=== PATIENT | female | born 1960 | race Caucasian/White ===

== ENCOUNTER 2018-04-10 09:00 | Outpatient (RCR) | payer OTHER, SELFPAY ==
--- NOTE | 2018-02-26 16:12 | PT.OTN ---
Current Diagnoses Other idiopathic scoliosis, lumbar region (02/27/18) Spondylolisthesis, lumbar region (02/27/18) Spinal stenosis, lumbar region with neurogenic claudication (02/27/18) Abnormal posture (02/27/18) Weakness (02/27/18) Transition note: On February 26, 2018 our therapy services consisting of Speech, Occupational, and Physical Therapy transitioned from the [employer] electronic documentation system to a new [employer] electronic documentation system.?? All documentation prior to February 26 can be found under [employer] saved data. From February 26 forward all medical record documentation will be in [employer] 6[employer]1.
--- NOTE | 2018-02-27 10:39 | PT.OTN ---
Transition note: On February 26, 2018 our therapy services consisting of Speech, Occupational, and Physical Therapy transitioned from the [employer] electronic documentation system to a new [employer] electronic documentation system.?? All documentation prior to February 26 can be found under [employer] saved data. From February 26 forward all medical record documentation will be in [employer]. Current Diagnoses Other idiopathic scoliosis, lumbar region (02/27/18) Spondylolisthesis, lumbar region (02/27/18) Spinal stenosis, lumbar region with neurogenic claudication (02/27/18) Abnormal posture (02/27/18) Weakness (02/27/18)
--- NOTE | 2018-02-27 10:56 | PT.OTN ---
Current Diagnoses Other idiopathic scoliosis, lumbar region (02/27/18) Spondylolisthesis, lumbar region (02/27/18) Spinal stenosis, lumbar region with neurogenic claudication (02/27/18) Abnormal posture (02/27/18) Weakness (02/27/18) Physical Therapy Treatment Note PT-OP-A Visit Information Start: 02/27/18 08:09 Freq: Status: Active Protocol: Activity Type Activity Date Activity User E-Sign Co-Sign Detail Recorded Client Recorded Date Recorded By Document 02/27/18 10:41 [facility] [email or web address] 02/27/18 10:55 [facility] 02/27/18 10:41 Out-Patient Physical Therapy Visit Information [Visit Information] -Visit Type Treatment Note -Visit Note POC ends -Visit Start Time 09:45 -Visit Stop Time 10:40 -Total Visit Minutes 55 PT-OP-C Subjective Start: 02/27/18 08:09 Freq: Status: Active Protocol: Activity Type Activity Date Activity User E-Sign Co-Sign Detail Recorded Client Recorded Date Recorded By Document 02/27/18 10:41 [facility] [email or web address] 02/27/18 10:55 [facility] 02/27/18 10:41 OP-PT Subjective [Patient Comments] -Patient Comments Pt reports she has been doing good. She has been getting some intermittent nerve pain. She has vacuumed and is okay. Pt reports she walked for 1 hour on treadmill with 4% gain. Reports she has been doing a lot of gardening too. PT-OP-Q Treatments Start: 02/27/18 08:09 Freq: Status: Active Protocol: Activity Type Activity Date Activity User E-Sign Co-Sign Detail Recorded Client Recorded Date Recorded By Document 02/27/18 10:41 [facility] [email or web address] 02/27/18 10:55 [facility] 02/27/18 10:41 Therapeutic Exercises [Supine Exercises] 2 -Supine Exercise Name bridge single leg -Side bilateral -Reps/Minutes 15 (B) 1 -Supine Exercise Name Bic[place] -Side bilateral -Reps/Minutes 15 [Prone Exercises] 1 -Prone Exercise Name Hip ER -Side bilateral -Resistance L1 -Reps/Minutes 10 [Sidelying Exercises] 1 -Sidelying Exercise Name s/l abd along wall -Side right -Reps/Minutes 10 [Standing Exercises] 3 -Standing Exercise Name wall roll up w/ 90/90 ER -Reps/Minutes 12 2 -Standing Exercise Name lunges -Side bilateral -Reps/Minutes 5 1 -Standing Exercise Name squat -Side bilateral -Reps/Minutes 20 -Comments manual cueing for trunk Manual Therapy Treatment [Soft Tissue Mobilization] 1 -Body Location Abdominal scars FM w/pelvic tilts & LTR -Mobilization Type Sustained Pressure -Intensity/Depth Moderate -Body Position Supine -Comments 28 min Self-Care/Home Management Treatment [Education] -Caregiver Education Hands and knee position while pulling weeds PT-OP-R Modalities Start: 02/27/18 08:09 Freq: Status: Active Protocol: Activity Type Activity Date Activity User E-Sign Co-Sign Detail Recorded Client Recorded Date Recorded By Document 02/27/18 10:55 [facility] [email or web address] 02/27/18 10:56 [facility] 02/27/18 10:55 Hot Pack/Cold Pack [Treatment] Cold Pack -Location LB -Patient Position Hooklying -Treatment Duration (minutes) 10 PT-OP-T Assessment and Plan Start: 02/27/18 08:09 Freq: Status: Active Protocol: Activity Type Activity Date Activity User E-Sign Co-Sign Detail Recorded Client Recorded Date Recorded By Document 02/27/18 10:41 [facility] [email or web address] 02/27/18 10:55 [facility] 02/27/18 10:41 Physical Therapy Assessment [Assessment Summary] -Assessment Pt reports feeling pain in L SI region during manual abdominal STM. Pt did well with HEP exercises with min cueing required for pelvic control. Squatting did require significant manual cueing. Cont cueing for neutral posture. Physical Therapy Plan [Next Visit Focus/Plan] -Next Visit Plan Advance scar mobility
--- NOTE | 2018-03-13 11:24 | PT.OTN ---
Current Diagnoses Other idiopathic scoliosis, lumbar region (03/13/18) Spondylolisthesis, lumbar region (03/13/18) Spinal stenosis, lumbar region with neurogenic claudication (03/13/18) Abnormal posture (03/13/18) Weakness (03/13/18) Physical Therapy Treatment Note PT-OP-A Visit Information Start: 02/27/18 08:09 Freq: Status: Active Protocol: Document 03/13/18 10:35 [facility] (Rec: 03/13/18 11:24 [facility] [id number]) Out-Patient Physical Therapy Visit Information Visit Information Visit Type Treatment Note Visit Start Time 10:30 Visit Stop Time 11:30 Total Visit Minutes 60 Visit Number PT-OP-C Subjective Start: 02/27/18 08:09 Freq: Status: Active Protocol: Document 03/13/18 10:35 [facility] (Rec: 03/13/18 11:24 [facility] [id number]) OP-PT Subjective Patient Comments Patient Comments Reports she walked the loop 2x yesterday but had 2-3/10 pain right after which she iced to help improve that pain. Was able to play with her grandkids without significant pain. PT-OP-Q Treatments Start: 02/27/18 08:09 Freq: Status: Active Protocol: Document 03/13/18 10:35 [facility] (Rec: 03/13/18 11:24 [facility] [id number]) Manual Therapy Treatment Soft Tissue Mobilization 2 Body Location piriformis L Mobilization Type Sustained Pressure Intensity/Depth Moderate Body Position Prone 1 Body Location Abdominal scars FM w/pelvic tilts & LTR Mobilization Type Sustained Pressure Intensity/Depth Moderate Body Position Supine Comments 30 min Joint Mobilizations 3 Joint hip Direction hip on axis ER R 2 Joint innominate Direction ER, ext, caudal Body Position Prone Comments FM 1 Joint sacrum Direction caudal & PA Body Position Prone Comments FM PT-OP-R Modalities Start: 02/27/18 08:09 Freq: Status: Active Protocol: Document 03/13/18 10:35 [facility] (Rec: 03/13/18 11:24 [facility] [id number]) Hot Pack/Cold Pack Treatment Cold Pack Location LB Patient Position Hooklying Treatment Duration (minutes) 10 PT-OP-T Assessment and Plan Start: 02/27/18 08:09 Freq: Status: Active Protocol: Document 03/13/18 10:35 [facility] (Rec: 03/13/18 11:24 [facility] [id number]) Physical Therapy Assessment Assessment Summary Assessment Pt cont to have restrictions in scar tissue and is improving with overall functional ability. Cont to have pain with activity which will require further re- edu on core stability. Physical Therapy Plan Frequency and Duration Frequency of Treatment 1-2x/week Plan of Care End Date 04/23/18 Next Visit Focus/Plan Next Visit Plan Work on nutation.
--- NOTE | 2018-03-20 13:06 | PT.OTN ---
Current Diagnoses Other idiopathic scoliosis, lumbar region (03/20/18) Spondylolisthesis, lumbar region (03/20/18) Spinal stenosis, lumbar region with neurogenic claudication (03/20/18) Abnormal posture (03/20/18) Weakness (03/20/18) Physical Therapy Treatment Note PT-OP-A Visit Information Start: 02/27/18 08:09 Freq: Status: Active Protocol: Document 03/20/18 10:31 [facility] (Rec: 03/20/18 13:02 [facility] [id number]) Out-Patient Physical Therapy Visit Information Visit Information Visit Type Treatment Note Visit Start Time 10:30 Visit Stop Time 11:15 Total Visit Minutes 45 Visit Number 60 PT-OP-C Subjective Start: 02/27/18 08:09 Freq: Status: Active Protocol: Document 03/20/18 10:31 [facility] (Rec: 03/20/18 13:02 [facility] [id number]) OP-PT Subjective Patient Comments Patient Comments Reports bruising to scar region after last STM. Notes she has been doing housework & yard work & 1 lap walks with some pain. PT-OP-Q Treatments Start: 02/27/18 08:09 Freq: Status: Active Protocol: Document 03/20/18 10:31 [facility] (Rec: 03/20/18 13:02 [facility] [id number]) Therapeutic Exercises Prone Exercises 2 Prone Exercise Name plank Reps/Minutes 2x20 sec Standing Exercises 1 Standing Exercise Name squat Side bilateral Resistance 5lb Reps/Minutes 15 Comments manual cueing for trunk Manual Therapy Treatment Soft Tissue Mobilization 3 Body Location QL Mobilization Type Rolling Intensity/Depth Moderate Joint Mobilizations 3 Joint hip Direction hip on axis ER R 2 Joint innominate Direction ER, caudal Body Position Prone Comments FM 1 Joint sacrum Direction caudal & PA Body Position Prone Comments FM Manual Techniques 1 Type Post depression COI Body Position Sidelying PT-OP-R Modalities Start: 02/27/18 08:09 Freq: Status: Active Protocol: Document 03/13/18 10:35 [facility] (Rec: 03/13/18 11:24 [facility] [id number]) Hot Pack/Cold Pack Treatment Cold Pack Location LB Patient Position Hooklying Treatment Duration (minutes) 10 PT-OP-T Assessment and Plan Start: 02/27/18 08:09 Freq: Status: Active Protocol: Document 03/20/18 10:31 [facility] (Rec: 03/20/18 11:23 [facility] [id number]) Physical Therapy Assessment Assessment Summary Assessment Pt improved with manual STM & mobilization to have improved alignment. Pt had some bruising along scar and was instructed to not mobilize until that improves. Improved mobility of scar noted especially on lat borders. Physical Therapy Plan Frequency and Duration Frequency of Treatment 1-2x/week Plan of Care End Date 04/23/18 Next Visit Focus/Plan Next Visit Plan Work on nutation. Please Sign and Return: I have reviewed this Plan of Care and certify that the skilled therapy services above are required to meet the patient???s needs. Physician Signature Date Printed Name and Credentials Clinical Instructor Signature Printed Name and Credentials
--- NOTE | 2018-03-27 13:36 | PT.OTN ---
Current Diagnoses Other idiopathic scoliosis, lumbar region (03/27/18) Spondylolisthesis, lumbar region (03/27/18) Spinal stenosis, lumbar region with neurogenic claudication (03/27/18) Abnormal posture (03/27/18) Weakness (03/27/18) Physical Therapy Treatment Note PT-OP-A Visit Information Start: 02/27/18 08:09 Freq: Status: Active Protocol: Document 03/27/18 13:31 [facility] (Rec: 03/27/18 13:36 [facility] [email or web address]) Out-Patient Physical Therapy Visit Information Visit Information Visit Type Treatment Note Visit Start Time 10:40 Visit Stop Time 11:25 Total Visit Minutes 45 Visit Number PT-OP-C Subjective Start: 02/27/18 08:09 Freq: Status: Active Protocol: Document 03/27/18 13:31 [facility] (Rec: 03/27/18 13:36 [facility] [email or web address]) OP-PT Subjective Patient Comments Patient Comments Pt reports scar is no longer bruised or tender. Reports 1/ 10 pain after pilates & walking 1 loop at [place]. She is going to start to gradually increase loop. Most pain has been is 2-3/10. PT-OP-M Strength Start: 02/27/18 08:09 Freq: Status: Active Protocol: Document 03/27/18 13:31 [facility] (Rec: 03/27/18 13:36 [facility] [email or web address]) Hip Strength Hip Manual Muscle Testing Right Flexion (L2) 4+ Good+ Extension (S1) 5 Normal Abduction 5 Normal External Rotation 5 Normal Internal Rotation 5 Normal Left Flexion (L2) 5 Normal Extension (S1) 5 Normal Abduction 5 Normal External Rotation 5 Normal Internal Rotation 5 Normal PT-OP-Q Treatments Start: 02/27/18 08:09 Freq: Status: Active Protocol: Document 03/27/18 13:31 [facility] (Rec: 03/27/18 13:36 [facility] [email or web address]) Therapeutic Exercises Standing Exercises 2 Standing Exercise Name lunges Side bilateral Reps/Minutes 5 Other Exercises 1 Other Exercise Name rolling out on foam roll LEs Manual Therapy Treatment Soft Tissue Mobilization 3 Body Location QL Mobilization Type Rolling Intensity/Depth Moderate 2 Body Location piriformis R>L Mobilization Type Sustained Pressure Intensity/Depth Moderate Body Position Prone Comments active release with hip ER/IR Joint Mobilizations 3 Joint hip Direction hip on axis ER B Comments w/neuro re edu 2 Joint innominate Direction ER, caudal, ext Body Position Prone Comments FM 1 Joint sacrum Direction caudal & PA Body Position Prone Comments FM Manual Techniques 1 Type Post depression COI Body Position Sidelying PT-OP-R Modalities Start: 02/27/18 08:09 Freq: Status: Active Protocol: Document 03/13/18 10:35 [facility] (Rec: 03/13/18 11:24 [facility] [id number]) Hot Pack/Cold Pack Treatment Cold Pack Location LB Patient Position Hooklying Treatment Duration (minutes) 10 PT-OP-T Assessment and Plan Start: 02/27/18 08:09 Freq: Status: Active Protocol: Document 03/27/18 13:31 [facility] (Rec: 03/27/18 13:36 [facility] [email or web address]) Physical Therapy Assessment Assessment Summary Assessment Pt is improving with her pelvis mobility with mobilization. No knee pain with pelvic mobs. Physical Therapy Plan Frequency and Duration Frequency of Treatment Every Other Week Plan of Care End Date 04/23/18 Next Visit Focus/Plan Next Note Type Treatment Note Next Visit Plan Work on nutation & possible d/ c if pt ready Please Sign and Return: I have reviewed this Plan of Care and certify that the skilled therapy services above are required to meet the patient???s needs. Physician Signature Date Printed Name and Credentials Clinical Instructor Signature Printed Name and Credentials
--- NOTE | 2018-04-01 15:13 | PT.OTN ---
Current Diagnoses Other idiopathic scoliosis, lumbar region (03/27/18) Spondylolisthesis, lumbar region (03/27/18) Spinal stenosis, lumbar region with neurogenic claudication (03/27/18) Abnormal posture (03/27/18) Weakness (03/27/18) Physical Therapy Treatment Note PT-OP-A Visit Information Start: 02/27/18 08:09 Freq: Status: Active Protocol: Document 04/01/18 14:58 [facility] (Rec: 04/01/18 15:13 [facility] [email or web address]) Out-Patient Physical Therapy Visit Information Visit Information Visit Type Treatment Note Visit Start Time 10:15 Visit Stop Time 11:00 Total Visit Minutes 45 Visit Number 13/60 Number of FILLER OPERATOR Visits 1 PT-OP-C Subjective Start: 02/27/18 08:09 Freq: Status: Active Protocol: Document 04/01/18 14:58 [facility] (Rec: 04/01/18 15:13 [facility] [email or web address]) OP-PT Subjective Patient Comments Patient Comments No complaints of pain today. States usually only has pain after pilates or walking too far. Happy to be in pool. PT-OP-M Strength Start: 02/27/18 08:09 Freq: Status: Active Protocol: Document 03/27/18 13:31 [facility] (Rec: 03/27/18 13:36 [facility] [email or web address]) Hip Strength Hip Manual Muscle Testing Right Flexion (L2) 4+ Good+ Extension (S1) 5 Normal Abduction 5 Normal External Rotation 5 Normal Internal Rotation 5 Normal Left Flexion (L2) 5 Normal Extension (S1) 5 Normal Abduction 5 Normal External Rotation 5 Normal Internal Rotation 5 Normal PT-OP-Q Treatments Start: 02/27/18 08:09 Freq: Status: Active Protocol: Document 03/27/18 13:31 [facility] (Rec: 03/27/18 13:36 [facility] [id number]) Therapeutic Exercises Standing Exercises 2 Standing Exercise Name lunges Side bilateral Reps/Minutes 5 Other Exercises 1 Other Exercise Name rolling out on foam roll LEs Manual Therapy Treatment Soft Tissue Mobilization 3 Body Location QL Mobilization Type Rolling Intensity/Depth Moderate 2 Body Location piriformis R>L Mobilization Type Sustained Pressure Intensity/Depth Moderate Body Position Prone Comments active release with hip ER/IR Joint Mobilizations 3 Joint hip Direction hip on axis ER B Comments w/neuro re edu 2 Joint innominate Direction ER, caudal, ext Body Position Prone Comments FM 1 Joint sacrum Direction caudal & PA Body Position Prone Comments FM Manual Techniques 1 Type Post depression COI Body Position Sidelying PT-OP-R Modalities Start: 02/27/18 08:09 Freq: Status: Active Protocol: Document 03/13/18 10:35 [facility] (Rec: 03/13/18 11:24 [facility] [id number]) Hot Pack/Cold Pack Treatment Cold Pack Location LB Patient Position Hooklying Treatment Duration (minutes) 10 PT-OP-S Aquatic Treatment Start: 04/01/18 14:58 Freq: Status: Active Protocol: Document 04/01/18 14:58 [facility] (Rec: 04/01/18 15:13 [facility] [email or web address]) Aquatics Treatment Pool Entry/Exit Pool Entry/Exit Method Stairs Assistance Independent Water Walking [place] December Water Level Chest Level Walking Equipment Resistance Fins Backwards Water Level Chest Level Walking Equipment Resistance Fins Sideways Water Level Chest Level Walking Equipment Resistance Fins Forwards Water Level Chest Level Walking Equipment Resistance Fins Level of Assistance Standby Assistance Lower Extremity Exercises 4 Details Squats Body Position Standing Water Level Waist Level Equipment Resistance Fins 3 Details Hip circles Body Position Standing Water Level Chest Level Equipment Resistance Fins 2 Details Hip Abduction Body Position Standing Water Level Chest Level Equipment Resistance Fins 1 Details Hip flexion/extension Body Position Standing Water Level Chest Level Equipment Resistance Fins Lower Extremity Stretches 2 Details Hamstring Body Position Standing Water Level Chest Level Equipment Small Noodle Comments 2 small noodles 1 Details Single/Double knee to chest Water Level Terrell Spinal Exercises 1 Details Deep water stabilization Water Level Terrell Equipment [place] Terrell Activities Terrell Activities Bicycle [place] Equipment Belt PT-OP-T Assessment and Plan Start: 02/27/18 08:09 Freq: Status: Active Protocol: Document 04/01/18 14:58 [facility] (Rec: 04/01/18 15:13 [facility] [email or web address]) Physical Therapy Assessment Assessment Summary Assessment No complaints of pain with aquatics, pt. enjoyed aquatics and was excited to be in pool . Physical Therapy Plan Frequency and Duration Frequency of Treatment Every Other Week Plan of Care End Date 04/23/18 Next Visit Focus/Plan Next Note Type Treatment Note Next Visit Plan To be determined by P.T. Please Sign and Return: I have reviewed this Plan of Care and certify that the skilled therapy services above are required to meet the patient?s needs. Physician Signature Date Printed Name and Credentials Clinical Instructor Signature Printed Name and Credentials
--- NOTE | 2018-04-10 09:47 | PT.OTN ---
Current Diagnoses Other idiopathic scoliosis, lumbar region (04/10/18) Spondylolisthesis, lumbar region (04/10/18) Spinal stenosis, lumbar region with neurogenic claudication (04/10/18) Abnormal posture (04/10/18) Weakness (04/10/18) Physical Therapy Treatment Note PT-OP-A Visit Information Start: 02/27/18 08:09 Freq: Status: Active Protocol: Document 04/10/18 09:42 [facility] (Rec: 04/10/18 09:47 [facility] [id number]) Out-Patient Physical Therapy Visit Information Visit Information Visit Type Discharge Summary Visit Start Time 09:00 Visit Stop Time 09:38 Total Visit Minutes 38 PT-OP-C Subjective Start: 02/27/18 08:09 Freq: Status: Active Protocol: Document 04/10/18 09:42 [facility] (Rec: 04/10/18 09:47 [facility] [id number]) OP-PT Subjective Patient Comments Patient Comments Feels ready for d/c. Patient Questionnaires Oswestry Low Back Index Oswestry Score 3 Oswestry Impairment 1 to 19% Impaired (Score 1-19) PT-OP-M Strength Start: 02/27/18 08:09 Freq: Status: Active Protocol: Document 04/10/18 09:42 [facility] (Rec: 04/10/18 09:47 [facility] [id number]) Hip Strength Hip Manual Muscle Testing Right Flexion (L2) 4+ Good+ Extension (S1) 5 Normal Abduction 5 Normal External Rotation 5 Normal Internal Rotation 5 Normal Left Flexion (L2) 5 Normal Extension (S1) 5 Normal Abduction 5 Normal External Rotation 5 Normal Internal Rotation 5 Normal PT-OP-Q Treatments Start: 02/27/18 08:09 Freq: Status: Active Protocol: Document 04/10/18 09:42 [facility] (Rec: 04/10/18 09:47 [facility] [id number]) Therapeutic Exercises Prone Exercises 1 Prone Exercise Name ER Equipment Used Lvl 1 (B) Comments 10 Therapeutic Activity Therapeutic Activity 1 Comments Review HEP & MMT & goals & prep for d/c Manual Therapy Treatment Soft Tissue Mobilization 3 Body Location QL Mobilization Type Rolling Intensity/Depth Moderate Joint Mobilizations 3 Joint hip Direction hip on axis ER B Comments w/neuro re edu 2 Joint innominate Direction ER, caudal, ext Body Position Prone Comments FM 1 Joint sacrum Direction caudal & PA Body Position Prone Comments FM PT-OP-R Modalities Start: 02/27/18 08:09 Freq: Status: Active Protocol: Document 04/10/18 09:42 [facility] (Rec: 04/10/18 09:47 [facility] [id number]) Hot Pack/Cold Pack Treatment Cold Pack Location LB Patient Position Hooklying Treatment Duration (minutes) 10 PT-OP-S Aquatic Treatment Start: 04/01/18 14:58 Freq: Status: Active Protocol: Document 04/01/18 14:58 [facility] (Rec: 04/01/18 15:13 [facility]MS [id number]) Aquatics Treatment Pool Entry/Exit Pool Entry/Exit Method Stairs Assistance Independent Water Walking [place] December Water Level Chest Level Walking Equipment Resistance Fins Backwards Water Level Chest Level Walking Equipment Resistance Fins Sideways Water Level Chest Level Walking Equipment Resistance Fins Forwards Water Level Chest Level Walking Equipment Resistance Fins Level of Assistance Standby Assistance Lower Extremity Exercises 4 Details Squats Body Position Standing Water Level Waist Level Equipment Resistance Fins 3 Details Hip circles Body Position Standing Water Level Chest Level Equipment Resistance Fins 2 Details Hip Abduction Body Position Standing Water Level Chest Level Equipment Resistance Fins 1 Details Hip flexion/extension Body Position Standing Water Level Chest Level Equipment Resistance Fins Lower Extremity Stretches 2 Details Hamstring Body Position Standing Water Level Chest Level Equipment Small Noodle Comments 2 small noodles 1 Details Single/Double knee to chest Water Level [place] Spinal Exercises 1 Details Deep water stabilization Water Level [place] Equipment [place] Activities [place] Activities Bicycle [place] Equipment Belt PT-OP-T Assessment and Plan Start: 02/27/18 08:09 Freq: Status: Active Protocol: Document 04/10/18 09:42 [facility] (Rec: 04/10/18 09:47 [facility] [id number]) Physical Therapy Assessment Progress Towards Goals Progress Towards Goals Progressing Toward Goals Goals Met Progress Comments Pt is close to meeting YENI goal with cont progress with cont HEP. 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 Pt has good posture presentation with good core activation as proven by 5/5 VCT & 3-4/5 in all planes LPM. Pt has 1/10 pain at most and demonstrates good gait mechanics. Physical Therapy Plan Discharge Physical Therapy Discharge Reasons Goals Met Please Sign and Return: I have reviewed this Plan of Care and certify that the skilled therapy services above are required to meet the patient?s needs. Physician Signature Date Printed Name and Credentials Clinical Instructor Signature Printed Name and Credentials
--- NOTE | 2018-04-10 09:47 | PT.OPDS ---
Current Diagnoses Other idiopathic scoliosis, lumbar region (04/10/18) Spondylolisthesis, lumbar region (04/10/18) Spinal stenosis, lumbar region with neurogenic claudication (04/10/18) Abnormal posture (04/10/18) Weakness (04/10/18) Provider Visit Care Team Role Provider Type Hong White MD Primary Care Provider Physician Specialty: Internal Medicine Address: [address] [place] [address], [id number] Email: Harriett Cardozo MD Attending Provider Physician Specialty: Orthopedic Surgery Address: [address] [place] [address], [id number] Email: [email or web address] Discharge Summary PT-OP-C Subjective Start: 02/27/18 08:09 Freq: Status: Active Protocol: Document 04/10/18 09:42 [facility] (Rec: 04/10/18 09:47 [facility] [id number]) OP-PT Subjective Patient Comments Patient Comments Feels ready for d/c. Patient Questionnaires Oswestry Low Back Index Oswestry Score 3 Oswestry Impairment 1 to 19% Impaired (Score 1-19) PT-OP-M Strength Start: 02/27/18 08:09 Freq: Status: Active Protocol: Document 04/10/18 09:42 [facility] (Rec: 04/10/18 09:47 [facility] [id number]) Hip Strength Hip Manual Muscle Testing Right Flexion (L2) 4+ Good+ Extension (S1) 5 Normal Abduction 5 Normal External Rotation 5 Normal Internal Rotation 5 Normal Left Flexion (L2) 5 Normal Extension (S1) 5 Normal Abduction 5 Normal External Rotation 5 Normal Internal Rotation 5 Normal PT-OP-T Assessment and Plan Start: 02/27/18 08:09 Freq: Status: Active Protocol: Document 04/10/18 09:42 [facility] (Rec: 04/10/18 09:47 [facility] [id number]) Physical Therapy Assessment Progress Towards Goals Progress Towards Goals Progressing Toward Goals Goals Met Progress Comments Pt is close to meeting YENI goal with cont progress with cont HEP. She is able to do edging catcher and go for walks and is gradually building up her distance. Pt has good posture presentation with good core activation as proven by 5/5 VCT & 3-4/5 in all planes LPM. Pt has 1/10 pain at most and demonstrates good gait mechanics. Physical Therapy Plan Discharge Physical Therapy Discharge Reasons Goals Met
== END 2018-04-18 15:57 ==
LOC: PHYS 09:00
PROVIDERS: PCP Internal Medicine; Visit Provider Orthopaedic Surgery
DX: M43.16 Spondylolisthesis, lumbar region (principal); M41.26 Other idiopathic scoliosis, lumbar region; M48.062 Spinal stenosis, lumbar region with neurogenic claudication; R53.1 Weakness; R29.3 Abnormal posture
CPT/HCPCS: 97010; 97110; 97113; 97140; 97530

== ENCOUNTER → 2018-08-08 07:53 | Outpatient (CLI) | payer OTHER, SELFPAY ==
--- NOTE | 2018-08-08 | DI.MG.S_ITS ---
BILATERAL DIGITAL SCREENING MAMMOGRAM 3D/2D WITH CAD: 08/08/2018 CLINICAL: Routine screening. Family history of breast cancer. Comparison is made to exams dated: 07/05/2017 mammogram - [facility], 06/04/2015 mammogram, and 06/09/2016 mammogram - [facility]. The tissue of both breasts is heterogeneously dense. This may lower the sensitivity of mammography. Current study was also evaluated with a Computer Aided Detection (CAD) system. No significant masses, calcifications, or other findings are seen in either breast. There has been no significant interval change. IMPRESSION: NEGATIVE There is no mammographic evidence of malignancy. A 1 year screening mammogram is recommended. NOTE: For mammograms, a report in lay terms will be sent to the patient. Approximately 15% of breast malignancies will not be visualized mammographically. In the management of a palpable breast mass, a negative mammogram must not discourage biopsy of a clinically suspicious lesion. Electronically Signed By: Ron ross/linda:08/08/2018 16:41:25 letter sent: Normal Exam ACR BI-RADS Category 1: Negative 3341F
== END ==
PROVIDERS: PCP Internal Medicine; Visit Provider Internal Medicine
DX: Z12.31 Encounter for screening mammogram for malignant neoplasm of breast (principal); Z80.3 Family history of malignant neoplasm of breast
CPT/HCPCS: 77063; 77067

== ENCOUNTER → 2019-07-04 09:01 | Outpatient (CLI) | payer OTHER, SELFPAY ==
[2019-07-04 09:41] LABS: Hemoglobin A1C% w Est Avg Glu 5.1 % (4.0-6.0)
[2019-07-04 10:02] LABS: Cholesterol 272 mg/dL (140-199); Glucose 95 mg/dL (70-100); HDL Cholesterol 51 mg/dL (40-60); LDL Cholesterol Calculated 198 mg/dL (<100); Triglycerides 113 mg/dL (35-150)
== END ==
PROVIDERS: PCP Internal Medicine; Visit Provider Psychiatry & Neurology Psychiatry
DX: F33.1 Major depressive disorder, recurrent, moderate (principal)
CPT/HCPCS: 36415; 80061; 82947; 83036

== ENCOUNTER → 2019-09-06 10:11 | Outpatient (CLI) | payer OTHER, SELFPAY ==
--- NOTE | 2019-09-06 | DI.MG.S_ITS ---
BILATERAL DIGITAL SCREENING MAMMOGRAM 3D/2D WITH CAD: 09/06/2019 CLINICAL: Routine screening. Family history of breast cancer. Comparison is made to exams dated: 08/08/2018 mammogram, 07/05/2017 mammogram - [facility], and 06/09/2016 mammogram - [facility]. The tissue of both breasts is heterogeneously dense. This may lower the sensitivity of mammography. Current study was also evaluated with a Computer Aided Detection (CAD) system. No significant masses, calcifications, or other findings are seen in either breast. There has been no significant interval change. IMPRESSION: NEGATIVE There is no mammographic evidence of malignancy. A 1 year screening mammogram is recommended. This exam was interpreted at Station ID: [id number]. NOTE: For mammograms, a report in lay terms will be sent to the patient. Approximately 15% of breast malignancies will not be visualized mammographically. In the management of a palpable breast mass, a negative mammogram must not discourage biopsy of a clinically suspicious lesion. Electronically Signed By: Luis Enrique ventura/linda:09/07/2019 12:51:11 letter sent: Normal Exam ACR BI-RADS Category 1: Negative 3341F
== END ==
PROVIDERS: PCP Internal Medicine; Visit Provider Internal Medicine
DX: Z12.31 Encounter for screening mammogram for malignant neoplasm of breast (principal); Z80.3 Family history of malignant neoplasm of breast
CPT/HCPCS: 77063; 77067

== ENCOUNTER → 2020-03-29 09:55 | Outpatient (CLI) | payer OTHER, SELFPAY ==
[2020-03-29 11:42] LABS: Cholesterol 283 mg/dL (140-199); Glucose 88 mg/dL (70-100); HDL Cholesterol 42 mg/dL (40-60); LDL Cholesterol Calculated 213 mg/dL (<100); Triglycerides 138 mg/dL (35-150)
[2020-03-29 12:13] LABS: TSH w/ Reflex to FT4 1.59 uIU/mL (0.47-4.68)
== END ==
PROVIDERS: PCP Internal Medicine; Referring Provider Internal Medicine; Visit Provider Internal Medicine
DX: Z00.00 Encounter for general adult medical examination without abnormal findings (principal); E03.9 Hypothyroidism, unspecified
CPT/HCPCS: 36415; 80061; 82947; 84443

== ENCOUNTER → 2020-04-07 15:01 | Outpatient (CLI) | payer OTHER, SELFPAY ==
[2020-04-07 16:25] LABS: BUN Creatinine Ratio 16.9 (6-22); Blood Urea Nitrogen 13 mg/dL (7-17); Calcium 9.7 mg/dL (8.4-10.2); Carbon Dioxide 29 mmol/L (22-32); Chloride 103 mmol/L (98-107); Estimated Glomerular Filt Rate > 60.0 mL/min (>60); Glucose 83 mg/dL (70-100); HEMOLYSIS < 15 (0-50); Potassium 3.6 mmol/L (3.4-5.1); Sodium 140 mmol/L (137-145)
== END ==
PROVIDERS: PCP Internal Medicine; Referring Provider Physician Assistant; Visit Provider Physician Assistant
DX: Z01.812 Encounter for preprocedural laboratory examination (principal)
CPT/HCPCS: 36415; 80048

== ENCOUNTER → 2020-04-21 14:09 | Outpatient (CLI) | payer OTHER, SELFPAY | PROVIDERS: PCP Internal Medicine | DX: Z13.820 Encounter for screening for osteoporosis (principal); M85.88 Other specified disorders of bone density and structure, other site; Z82.62 Family history of osteoporosis; E07.9 Disorder of thyroid, unspecified; Z78.0 Asymptomatic menopausal state; Z90.722 Acquired absence of ovaries, bilateral | CPT/HCPCS: 77080 ==

== ENCOUNTER → 2020-09-29 19:09 | Outpatient (ROUT) | payer OTHER, SELFPAY ==
[2020-09-29 19:34] LABS: BUN Creatinine Ratio 16.4 (6-22); Blood Urea Nitrogen 12 mg/dL (7-17); Calcium 9.8 mg/dL (8.4-10.2); Carbon Dioxide 33 mmol/L (22-32); Chloride 102 mmol/L (98-107); Cholesterol 303 mg/dL (140-199); Estimated Glomerular Filt Rate > 60.0 mL/min (>60); Glucose 86 mg/dL (70-100); HDL Cholesterol 43 mg/dL (40-60); HEMOLYSIS < 15 (0-50); LDL Cholesterol Calculated 217 mg/dL (<100); Sodium 138 mmol/L (137-145); Triglycerides 216 mg/dL (35-150)
[2020-09-29 20:05] LABS: TSH w/ Reflex to FT4 1.98 uIU/mL (0.47-4.68)
== END ==
PROVIDERS: PCP Internal Medicine; Visit Provider Internal Medicine
DX: Z00.00 Encounter for general adult medical examination without abnormal findings (principal); M85.80 Other specified disorders of bone density and structure, unspecified site; E03.9 Hypothyroidism, unspecified
CPT/HCPCS: 80048; 80061; 84443

== ENCOUNTER → 2020-10-16 13:29 | Outpatient (CLI) | payer OTHER, SELFPAY ==
--- NOTE | 2020-10-16 13:30 | DI.MG.S_ITS ---
BILATERAL DIGITAL SCREENING MAMMOGRAM 3D/2D WITH CAD: 10/16/2020 CLINICAL: Routine screening. Family history of breast cancer. Comparison is made to exams dated: 09/06/2019 mammogram, 08/08/2018 mammogram, and 07/05/2017 mammogram - [facility]. There are scattered fibroglandular elements in both breasts. Current study was also evaluated with a Computer Aided Detection (CAD) system. No significant masses, calcifications, or other findings are seen in either breast. There has been no significant interval change. IMPRESSION: NEGATIVE There is no mammographic evidence of malignancy. A 1 year screening mammogram is recommended. This exam was interpreted at Station ID: [id number]. NOTE: For mammograms, a report in lay terms will be sent to the patient. Approximately 15% of breast malignancies will not be visualized mammographically. In the management of a palpable breast mass, a negative mammogram must not discourage biopsy of a clinically suspicious lesion. Electronically Signed By: Luis Enrique ventura/linda:10/18/2020 07:53:39 letter sent: Normal Exam ACR BI-RADS Category 1: Negative 3341F
== END ==
PROVIDERS: PCP Internal Medicine; Referring Provider Internal Medicine; Visit Provider Internal Medicine
DX: Z12.31 Encounter for screening mammogram for malignant neoplasm of breast (principal); Z80.3 Family history of malignant neoplasm of breast
CPT/HCPCS: 77063; 77067

== ENCOUNTER → 2020-12-06 12:40 | Outpatient (CLI) | payer OTHER, SELFPAY ==
--- NOTE | 2020-12-06 | DI.RAD.S_ITS ---
PROCEDURE: XR DEXA AXIAL SKELETON INDICATIONS: Disorder of bone, unspecified COMPARISON: None. FINDINGS: This blank DEXA report has been sent in error by the PACS system. The correct and complete report will be forthcoming in 1-2 days. Thank you for your patience and understanding. Dictated by: Vish Guajardo M.D. on 12/06/2020 at 17:17 Approved by: Vish Guajardo M.D. on 12/06/2020 at 17:17
== END ==
PROVIDERS: PCP Internal Medicine; Referring Provider Internal Medicine; Visit Provider Internal Medicine
DX: M85.88 Other specified disorders of bone density and structure, other site (principal); Z78.0 Asymptomatic menopausal state; E07.9 Disorder of thyroid, unspecified; Z90.722 Acquired absence of ovaries, bilateral; Z82.62 Family history of osteoporosis
CPT/HCPCS: 77080

== ENCOUNTER → 2021-03-03 11:25 | Outpatient (CLI) | payer OTHER, SELFPAY ==
[2021-03-03 12:42] LABS: BUN Creatinine Ratio 14.3 (6-22); Blood Urea Nitrogen 11 mg/dL (7-17); Calcium 9.5 mg/dL (8.4-10.2); Carbon Dioxide 29 mmol/L (22-32); Chloride 100 mmol/L (98-107); Estimated Glomerular Filt Rate > 60.0 mL/min (>60); Glucose 74 mg/dL (70-100); HEMOLYSIS < 15 (0-50); Potassium 3.7 mmol/L (3.4-5.1); Sodium 136 mmol/L (137-145)
== END ==
PROVIDERS: PCP Internal Medicine; Referring Provider Internal Medicine; Visit Provider Internal Medicine
DX: M85.80 Other specified disorders of bone density and structure, unspecified site (principal)
CPT/HCPCS: 80048

== ENCOUNTER 2021-05-17 13:56 | Observation (INO) | payer OTHER, SELFPAY ==
[2021-05-17 14:02] VITALS: BP 126/75; PULSE 85; RESP 16; TEMP 36.9; O2SAT 100
--- NOTE | 2021-05-17 14:09 | DI.CT.S_ITS ---
PROCEDURE: CT HEAD/BRAIN WO CON INDICATIONS: r/o stroke TECHNIQUE: Noncontrast 4.5 mm thick angled axial sections acquired from the foramen magnum to the vertex, with coronal and sagittal reformats. For radiation dose reduction, the following was used: automated exposure control, adjustment of mA and/or kV according to patient size. COMPARISON: [facility], CT, HEAD WITHOUT CONTRAST, 07/15/2015, 14:42. FINDINGS: Image quality: Excellent. CSF spaces: Basal cisterns are patent. No extra-axial fluid collections. Ventricles are normal in size and shape. Brain: No midline shift. No intracranial masses or hemorrhage. Wheeler-white matter interface is normal. Skull and face: Calvarium and visualized facial bones are intact, without suspicious lesions. Sinuses: Visualized sinuses and mastoids are clear. IMPRESSION: 1. No acute intracranial process. Dictated by: Victoria Davis M.D. on 05/17/2021 at 14:32 Approved by: Victoria Davis M.D. on 05/17/2021 at 14:33
[2021-05-17 14:35] LABS: Add Manual Diff / Slide Review NO; Basophils Absolute Auto 100 /uL (0-100); Basophils Percent Auto 0.9 % (0-2); Eosinophils Absolute Auto 0 /uL (0-450); Eosinophils Percent Auto 0.5 % (2-4); Hematocrit 39.7 % (36-46); Hemoglobin 13.6 g/dL (12.0-16.0); Lymphocytes Absolute Auto 1500 /uL (1100-4500); Lymphocytes Percent Auto 23.3 % (25-40); Mean Corpuscular HGB Conc 34.3 % (30-36); Mean Corpuscular Hemoglobin 32.2 PG (26-34); Monocytes Absolute Auto 400 /uL (0-900); Monocytes Percent Auto 6.9 % (3-14); Neutrophils Absolute Auto 4400 /uL (1500-7000); Neutrophils Percent Auto 68.4 % (50-75); Platelet Count 247 X10^3/uL (150-400); Prothrombin Time 11.7 SECONDS (10.1-12.7); Red Blood Cell Count 4.22 X10^6/uL (4.0-5.2); Red Cell Distribution Width 12.7 % (11.6-14.8); White Blood Cell Count 6.4 X10^3/uL (4.5-11.0)
[2021-05-17 14:41] LABS: Alanine Aminotransferase 92 IU/L (<35); Albumin 4.4 g/dL (3.5-5.0); Albumin Globulin Ratio 1.5 (1.0-2.8); Alkaline Phosphatase 41 U/L (38-126); Aspartate Aminotransferase 54 IU/L (14-36); BUN Creatinine Ratio 18.5 (6-22); Bilirubin Total 0.4 mg/dL (0.2-1.3); Blood Urea Nitrogen 12 mg/dL (7-17); Calcium 9.5 mg/dL (8.4-10.2); Carbon Dioxide 29 mmol/L (22-32); Chloride 102 mmol/L (98-107); Estimated Glomerular Filt Rate > 60.0 mL/min (>60); Glucose 88 mg/dL (70-100); HEMOLYSIS 15 (0-50); Potassium 3.6 mmol/L (3.4-5.1); Sodium 138 mmol/L (137-145); Total Protein 7.4 g/dL (6.3-8.2)
--- NOTE | 2021-05-17 16:13 | ED_ITS ---
HPI - Neuro Symptoms/Deficit General Chief Complaint: Neuro Symptoms/Deficit Stated Complaint: referred by Christopher concerned about TIA Time Seen by Provider: 05/17/21 16:02 Source: patient Mode of arrival: Ambulatory History of Present Illness HPI Narrative: Patient is a 60-year-old female who presents with intermittent right leg weakness and headache and visual changes. She states that over the past few months she has had at least 3 episodes where she has right leg weakness. It says is always from sitting to standing she is unable to bear weight on her right leg. She cannot move it it lasts for seconds to minutes. A resolves and she instantly has headache. This is happened a few times. It happened again yesterday. Symptoms have now completely resolved except for now she has some blurry vision. She says that she has some blurriness in the bottom half of her eyes. She denies any peripheral visual loss. She now has no nu mbness tingling or weakness. She also has slight headache afterwards. She talked with her primary care provider today who sent her to the ER for evaluation stroke rule out. On Anticoagulants: No Related Data Home Medications Medication Instructions Recorded Confirmed levothyroxine 50 mcg tablet 50 mcg PO QAM #0 05/04/17 05/17/21 mirtazapine 30 mg tablet 30 mg PO HS #0 05/21/17 05/17/21 desvenlafaxine succinate 50 mg 50 mg PO BEDTIME 05/17/21 05/17/21 tablet,extended release 24 hr (Pristiq) estradiol 1 mg tablet 0.5 mg PO DAILY 05/17/21 05/17/21 olanzapine 10 mg tablet (Zyprexa) 10 mg PO 1700 05/17/21 05/17/21 Allergies Allergy/AdvReac Type Severity Reaction Status Date / Time doxazosin Allergy Unknown SOB Unverified 02/06/18 13:01 fluoxetine [FLUOXETINE] Allergy Unknown HYPONATREMI Unverified 02/06/18 13:01 A meloxicam Allergy Unknown SOB Unverified 02/06/18 13:01 progesterone Allergy Unknown Unverified 02/06/18 13:01 [From PROMETRIUM] tamsulosin Allergy Unknown Unverified 02/06/18 13:01 terazosin Allergy Unknown SOB Unverified 02/06/18 13:01 venlafaxine [From EFFEXOR] Allergy Unknown HYPONATREMI Unverified 02/06/18 13:01 A paroxetine [PAROXETINE] AdvReac Unknown HYPONATREMI Unverified 02/06/18 13:01 A Review of Systems Review of Systems Narrative: GENERAL: Denies chills, fatigue, malaise, fever, sweats, travel HEENT: Visual changes, see HPI RESPIRATORY: Denies dyspnea, cough, wheezing, hemoptysis, sputum. CARDIOVASCULAR: Denies chest pain, palpitations, orthopnea, edema GASTROINTESTINAL: Denies nausea, vomiting, abdominal pain, diarrhea, constipation, melena. : Denies dysuria, frequency, incontinence, hematuria, urinary retention, flank pain. MUSCULOSKELETAL: Denies weakness, joint pain, or bony pain SKIN: No rash, no erythema, no pruritus NEUROLOGIC: See HPI PSYCHIATRIC: No concerning psychosocial issues. 12 point review of systems is negative except for those stated above and HPI Hematologic/Lymphatic On Anticoagulants: No Patient History Surgical History History of tonsillectomy Status post bilateral salpingo-oophorectomy (BSO) (05/21/17) Status post cholecystectomy Status post laparoscopic supracervical hysterectomy (05/21/17) Social History household members: spouse Smoking Status: Never smoker alcohol intake: never Smoking Status: Never smoker Exam Initial Vital Signs Initial Vital Signs: Vital Signs Temperature 98.4 F 05/17/21 14:02 Pulse Rate 85 05/17/21 14:02 Respiratory Rate 16 05/17/21 14:02 Blood Pressure 126/75 05/17/21 14:02 Pulse Oximetry 100 05/17/21 14:02 GENERAL: Well-appearing, well-nourished and in no acute distress. HEENT: Head atraumatic,EOMI, pupils reactive, face symmetric, moist mucous membranes CARDIOVASCULAR: Regular rate and rhythm without murmurs, rubs or gallops. RESPIRATORY: Breath sounds equal bilaterally, no wheezes rales or rhonchi. ABDOMEN: Soft, nontender. Normoactive bowel sounds all 4 quadrants. No guarding or rebound. EXTREMITIES: Normal range of motion, no clubbing or edema. Neurovascularly intact NEUROLOGICAL: Alert and oriented x4.Normal gait and speech. Cranial nerves II t hrough XII grossly intact. Good gldjam-xz-euhh, good lfag-fs-cake, strength equal bilaterally, no dysarthria or aphasia, sensation in tact to soft touch bilaterally, no visual changes, no facial droop SKIN: Warm, dry, no laceration, no petechiae, no rashes or lesions. Scores NIH Stroke Scale Level of Conciousness: Alert, keenly responsive Ask month/age: Answers both questions correctly. Open/close eyes, close hand: Performs both tasks correctly Best gaze horizontal: Normal Visual [place]: No visual loss Facial palsy: Normal symetrical movement Left arm drift: No drift for full 10 sec Right arm drift: No drift for full 10 sec Left leg drift: No drift for full 5 sec Right leg drift: No drift for full 5 sec Limb ataxia: Absent Sensory on face/arms/legs: Normal, no sensory loss Best language: No aphasia, normal Dysarthria: Normal Extinction or inattention: No abnormality Total NIH Stroke scale score: 0 Course Orders Ordered: ED Orders 05/18/21 05:30 Basic Metabolic Panel Routine Complete Blood Count AUTO DIFF Routine Hemoglobin A1C% w Est Avg Glu Routine Lipid Panel Routine Acetaminophen (Acetaminophen 325 Mg Tablet) 650 mg PO Q6HR PRN PRN Reason: Fever/Mild Pain (1-3) Aspirin (Aspirin Ec 81 Mg Tablet) 81 mg PO DAILY [facility] Atorvastatin Calcium (Atorvastatin 20 Mg Tablet) 80 mg PO BEDTIME [facility] Last Admin: 05/17/21 20:52 Dose: 80 mg Documented by: MONI Enoxaparin Sodium (Enoxaparin 40 Mg/0.4 Ml Syringe) 40 mg SUBCUT DAILY [facility] Levothyroxine Sodium (Levothyroxine 50 Mcg Tablet) 50 mcg PO DAILY [facility] Last Admin: 05/17/21 20:41 Dose: Not Given Documented by: MONI Mirtazapine (Mirtazapine 15 Mg Tablet) 30 mg PO BEDTIME [facility] Last Admin: 05/17/21 20:44 Dose: 30 mg Documented by: MONI Desvenlafaxine Succinate [Pristiq] 50 Mg Tablet Extended Release 50 mg PO BEDTIME [facility] Last Admin: 05/17/21 20:44 Dose: 50 mg Documented by: MONI Stored In Pharmacy 0 each PO PRN PRN PRN Reason: . Olanzapine (Olanzapine 2.5 Mg Tablet) 10 mg PO 1700 [facility] Ondansetron HCl (Ondansetron 4 Mg/2 Ml Inj) 4 mg IV Q8HR PRN PRN Reason: Nausea And Vomiting Discontinued Medications Sodium Chloride (Normal Saline 0.9%) 1,000 mls @ 1,000 mls/hr IV BOLUS ONE Stop: 05/18/21 08:17 Vital Signs Vital signs: Vital Signs - 8 hr 05/17/21 14:02 Temperature 98.4 F Pulse Rate 85 Respiratory Rate 16 Blood Pressure 126/75 Pulse Oximetry 100 MDM - Neuro Symptoms/Deficit Lab Data Result diagrams: 05/18/21 05:30 05/18/21 05:30 Labs: Lab Results 05/17/21 05/17/21 05/17/21 Range/Units 14:20 14:20 14:20 WBC 6.4 (4.5-11.0) X10^3/uL RBC 4.22 (4.0-5.2) X10^6/uL Hgb 13.6 (12.0-16.0) g/dL Hct 39.7 (36-46) % MCV 94.0 (80-100) fL MCH 32.2 (26-34) PG MCHC 34.3 (30-36) % RDW 12.7 (11.6-14.8) % Plt Count 247 (150-400) X10^3/uL Neut % (Auto) 68.4 (50-75) % Lymph % (Auto) 23.3 L (25-40) % Stephens % (Auto) 6.9 (3-14) % Eos % (Auto) 0.5 L (2-4) % Baso % (Auto) 0.9 (0-2) % Neut # (Auto) 4400 (1313-8282) /uL Lymph # (Auto) 1500 (6678-8032) /uL Stephens # (Auto) 400 (0-900) /uL Eos # (Auto) 0 (0-450) /uL Baso # (Auto) 100 (0-100) /uL PT 11.7 (10.1-12.7) SECONDS INR 1.0 (0.9-1.3) Sodium 138 (137-145) mmol/L Potassium 3.6 (3.4-5.1) mmol/L Chloride 102 (98-107) mmol/L Carbon Dioxide 29 (22-32) mmol/L BUN 12 (7-17) mg/dL Creatinine 0.65 (0.52-1.04) mg/dL Estimated GFR > 60.0 (>60) mL/min BUN/Creatinine Ratio 18.5 (6-22) Glucose 88 (70-100) mg/dL Calcium 9.5 (8.4-10.2) mg/dL Total Bilirubin 0.4 (0.2-1.3) mg/dL AST 54 H (14-36) IU/L ALT 92 H (<35) IU/L Alkaline Phosphatase 41 (38-126) U/L Total Protein 7.4 (6.3-8.2) g/dL Albumin 4.4 (3.5-5.0) g/dL Globulin 3.0 (1.7-4.1) g/dL Albumin/Globulin Ratio 1.5 (1.0-2.8) TSH (0.47-4.68) uIU/mL SARS-CoV-2 (PCR) (Negative) 05/17/21 05/17/21 Range/Units 14:20 18:06 WBC (4.5-11.0) X10^3/uL RBC (4.0-5.2) X10^6/uL Hgb (12.0-16.0) g/dL Hct (36-46) % MCV (80-100) fL MCH (26-34) PG MCHC (30-36) % RDW (11.6-14.8) % Plt Count (150-400) X10^3/uL Neut % (Auto) (50-75) % Lymph % (Auto) (25-40) % Stephens % (Auto) (3-14) % Eos % (Auto) (2-4) % Baso % (Auto) (0-2) % Neut # (Auto) (4518-9231) /uL Lymph # (Auto) (4988-2383) /uL Stephens # (Auto) (0-900) /uL Eos # (Auto) (0-450) /uL Baso # (Auto) (0-100) /uL PT (10.1-12.7) SECONDS INR (0.9-1.3) Sodium (137-145) mmol/L Potassium (3.4-5.1) mmol/L Chloride (98-107) mmol/L Carbon Dioxide (22-32) mmol/L BUN (7-17) mg/dL Creatinine (0.52-1.04) mg/dL Estimated GFR (>60) mL/min BUN/Creatinine Ratio (6-22) Glucose (70-100) mg/dL Calcium (8.4-10.2) mg/dL Total Bilirubin (0.2-1.3) mg/dL AST (14-36) IU/L ALT (<35) IU/L Alkaline Phosphatase (38-126) U/L Total Protein (6.3-8.2) g/dL Albumin (3.5-5.0) g/dL Globulin (1.7-4.1) g/dL Albumin/Globulin Ratio (1.0-2.8) TSH 1.30 (0.47-4.68) uIU/mL SARS-CoV-2 (PCR) Negative (Negative) Imaging Data CT scan - head: Radiologist's Impression: PROCEDURE: CT HEAD/BRAIN WO CON INDICATIONS: r/o stroke TECHNIQUE: Noncontrast 4.5 mm thick angled axial sections acquired from the foramen magnum to the vertex, with coronal and sagittal reformats. For radiation dose reduction, the following was used: automated exposure control, adjustment of mA and/or kV according to patient size. COMPARISON: [facility], CT, HEAD WITHOUT CONTRAST, 07/15/2015, 14:42. FINDINGS: Image quality: Excellent. CSF spaces: Basal cisterns are patent. No extra-axial fluid collections. Ventricles are normal in size and shape. Brain: No midline shift. No intracranial masses or hemorrhage. Wheeler-white matter interface is normal. Skull and face: Calvarium and visualized facial bones are intact, without suspicious lesions. Sinuses: Visualized sinuses and mastoids are clear. IMPRESSION: 1. No acute intracranial process. Dictated by: Victoria Davis M.D. on 05/17/2021 at 14:32 Approved by: Victoria Davis M.D. on 05/17/2021 at 14:3 CTA - brain/neck: Radiologist's Impression: PROCEDURE: CT ANGIO HEAD AND NECK INDICATIONS: right leg weakness now resolved TECHNIQUE: Noncontrast images were performed earlier in the day and not repeated. After the administration of intravenous contrast, 1 mm thick sections acquired from the aortic arch through the [place]. Post-contrast 4.5 mm thick sections then re- acquired from the foramen magnum to the vertex. 3-dimensional txjtqgx-anhfpawrx-lrxnqgvllt (MIP) and/or volume rendering reformats were acquired of the central intracranial vasculature and neck separately. COMPARISON: [facility], CT, CT HEAD/BRAIN WO CON, 05/17/2021, 14:24. [facility], CT, HEAD WITHOUT CONTRAST, 07/15/2015, 14:42. FINDINGS: Image quality: Excellent. BRAIN: CSF spaces: Ventricles are normal in size and shape. Basal cisterns are patent. No extra-axial fluid collections. Brain: No midline shift. No intracranial bleeds or masses. Wheeler-white matter interface appears intact. Skull and face: Calvarium and facial bones appear intact, without suspicious lesions. Orbits appear normal. Sinuses: Sinuses and mastoids are clear. HEAD CT ANGIOGRAPHY: Anterior circulation: Intracranial internal carotid arteries are normal in size and flow. The flow within the paired anterior cerebral arteries is normal and symmetric. The flow within the middle cerebral arteries is normal and symmetric. The anterior communicating artery is seen. No aneurysms are seen. Posterior circulation: Visualized portions of the vertebral arteries demonstrate normal caliber, and join to form a normal appearing basilar artery. The distal left vertebral artery largely terminates in the left posterior inferior cerebellar artery. type origins of the posterior cerebral arteries on both sides can be seen. Flow within the posterior cerebral arteries is normal and symmetric. No aneurysms are seen. NECK CT ANGIOGRAPHY: Carotid system: The great vessels demonstrate a conventional anatomy as they arise from the aortic arch. The origins of the common carotid arteries appear patent. The common carotid arteries demonstrate normal caliber and courses. The bifurcation regions are both widely patent. The internal carotid arteries demonstrate normal calibers and courses. Posterior circulation: The origins of the vertebral arteries both appear widely patent. The more superior extracranial portions of both vertebral arteries also demonstrate normal courses and calibers. The right vertebral artery is dominant to the left. Soft tissues: Visualized neck soft tissues demonstrate no suspicious abnormalities. Bones: No suspicious bony lesions. Visualized cervical spine appears normally aligned. IMPRESSION: No significant intracranial arterial abnormality is seen. Within the arteries of the neck, no hemodynamically significant stenosis can be seen. Tpqazd-ma-Bunpzw developmental anomalies are incidentally noted. No masses or abnormal enhancement can be seen. Any quantitative measurements of stenosis were performed using NASCET criteria. Dictated by: Leander Luna M.D. on 05/17/2021 at 16:03 ECG Data Interpretation: Normal sinus rhythm 70 CA interval 134 QRS [address] changes or T-wave inversions MDM Narrative Medical decision making narrative: Patient's symptoms are quite odd not totally consistent with a TIA. Symptoms only happen from sitting to standing always involve her right leg. Symptoms now have completely resolved she is certainly out of the window for tPA. She denies any back pain, does not quite sound like sciatica or nerve impingement. Certainly that would not explain headache and visual changes either. Dr. Turk, in ED to seen evaluate patient happily except for TIA workup Discharge Plan Departure Patient Disposition: Admitted as Observation Clinical Impression: Transient ischemic attack (TIA) Admit Date/Time: 05/17/21 18:20 Admit Provider: Jefferson Collier
--- NOTE | 2021-05-17 16:35 | DI.CT.S_ITS ---
PROCEDURE: CT ANGIO HEAD AND NECK INDICATIONS: right leg weakness now resolved TECHNIQUE: Noncontrast images were performed earlier in the day and not repeated. After the administration of intravenous contrast, 1 mm thick sections acquired from the aortic arch through the [place] of [place]. Post-contrast 4.5 mm thick sections then re-acquired from the foramen magnum to the vertex. 3-dimensional pasevuo-xdkzgailw-urlkqpkcqb (MIP) and/or volume rendering reformats were acquired of the central intracranial vasculature and neck separately. COMPARISON: [facility], CT, CT HEAD/BRAIN WO CON, 05/17/2021, 14:24. [facility], CT, HEAD WITHOUT CONTRAST, 07/15/2015, 14:42. FINDINGS: Image quality: Excellent. BRAIN: CSF spaces: Ventricles are normal in size and shape. Basal cisterns are patent. No extra-axial fluid collections. Brain: No midline shift. No intracranial bleeds or masses. Wheeler-white matter interface appears intact. Skull and face: Calvarium and facial bones appear intact, without suspicious lesions. Orbits appear normal. Sinuses: Sinuses and mastoids are clear. HEAD CT ANGIOGRAPHY: Anterior circulation: Intracranial internal carotid arteries are normal in size and flow. The flow within the paired anterior cerebral arteries is normal and symmetric. The flow within the middle cerebral arteries is normal and symmetric. The anterior communicating artery is seen. No aneurysms are seen. Posterior circulation: Visualized portions of the vertebral arteries demonstrate normal caliber, and join to form a normal appearing basilar artery. The distal left vertebral artery largely terminates in the left posterior inferior cerebellar artery. type origins of the posterior cerebral arteries on both sides can be seen. Flow within the posterior cerebral arteries is normal and symmetric. No aneurysms are seen. NECK CT ANGIOGRAPHY: Carotid system: The great vessels demonstrate a conventional anatomy as they arise from the aortic arch. The origins of the common carotid arteries appear patent. The common carotid arteries demonstrate normal caliber and courses. The bifurcation regions are both widely patent. The internal carotid arteries demonstrate normal calibers and courses. Posterior circulation: The origins of the vertebral arteries both appear widely patent. The more superior extracranial portions of both vertebral arteries also demonstrate normal courses and calibers. The right vertebral artery is dominant to the left. Soft tissues: Visualized neck soft tissues demonstrate no suspicious abnormalities. Bones: No suspicious bony lesions. Visualized cervical spine appears normally aligned. IMPRESSION: No significant intracranial arterial abnormality is seen. Within the arteries of the neck, no hemodynamically significant stenosis can be seen. Bbhdva-an-Akicwr developmental anomalies are incidentally noted. No masses or abnormal enhancement can be seen. Any quantitative measurements of stenosis were performed using NASCET criteria. Dictated by: Leander Luna M.D. on 05/17/2021 at 16:03 Approved by: Leander Luna M.D. on 05/17/2021 at 16:06
--- NOTE | 2021-05-17 17:27 | DI.MRI.S_ITS ---
PROCEDURE: MR STROKE Pre- and post-contrast brain MRI, non-contrast brain MR angiogram, pre- and postcontrast neck MR angiogram INDICATIONS: TIA? TECHNIQUE: Brain: Noncontrast axial T1 spin echo, axial T2 fast spin echo, sagittal and axial FLAIR, coronal T2 fast spin echo, axial gradient echo, axial diffusion and ADC through the brain. After the administration of contrast, axial 3D VIBE of the cranial vasculature and brain. Brain MRA: Non-contrast 3-D time of flight MR angiogram, with multiple eqmexsu-izssjtdmo-cqygysvacy (MIP) reformats performed. Neck MRA: Axial and sagittal TruFISP through the neck. Coronal dynamic MR angiogram during administration of contrast in the arterial and venous phases, with 3-dimenstional uzgxxad-gjotablxt-dwykkqnwva (MIP) reformats constructed from subtraction images. COMPARISON: [facility], CT, CT ANGIO HEAD AND NECK, 05/17/2021, 16:39. [facility], CT, CT HEAD/BRAIN WO CON, 05/17/2021, 14:24. FINDINGS: Image quality: There is mild motion artifact. BRAIN: CSF spaces: The ventricles are normal in size. Basal cisterns are patent. No extra-axial fluid collections. Brain: Diffusion weighted images demonstrate no acute infarcts. No intracranial hemorrhage, mass, or mass effect. There are subcortical and periventricular foci of white matter T2 hyperintensity consistent with chronic small vessel ischemic changes. Brainstem appears normal. Normal intravascular flow voids are present. No abnormal intracranial enhancement. Skull and face: Calvarial marrow signal is normal. Orbits appear normal. Sinuses: Sinuses and mastoids are clear. BRAIN MR ANGIOGRAM: Anterior circulation: Intracranial internal carotid arteries are normal in size and patent bilaterally. The flow within the paired anterior cerebral arteries is symmetric and patent bilaterally. The flow within the middle cerebral arteries is symmetric and patent bilaterally. The anterior communicating artery is patent. No high-grade stenoses, occlusions, or aneurysms. Posterior circulation: The visualized portions of the vertebral arteries are patent and join to form a patent basilar artery. The flow within the posterior cerebral arteries is symmetric and patent bilaterally. There is persistent circulation on the left, with the left posterior cerebral artery supplied by the posterior communicating artery. No high-grade stenoses, occlusions, or aneurysms. NECK MR ANGIOGRAM: Carotids: Great vessels demonstrate conventional anatomy as they arise from the aortic arch. The origins of the common carotid arteries appear patent. The calibers and courses of both common carotid arteries are normal. The carotid bulbs appear widely patent. The internal carotid arteries demonstrate normal course and caliber. Posterior circulation: The origins of the vertebral arteries appear patent. More superior portions of both vertebral arteries demonstrate normal course and caliber, and join to form a patent appearing basilar artery. There is a left dominant vertebral arterial system. Miscellaneous: Subclavian arteries appear patent. Pre-contrast images through the neck demonstrate no soft tissue abnormalities. IMPRESSION: BRAIN MRI: 1. No infarct or other acute intracranial abnormality. BRAIN MR ANGIOGRAM: 1. No high-grade stenosis or occlusion of the central intracranial arteries. NECK MR ANGIOGRAM: 1. No high-grade stenosis or occlusion of the head and neck arteries. The carotid bulbs appear widely patent. Dictated by: Ron Friedman M.D. on 05/17/2021 at 19:48 Approved by: Ron Friedman M.D. on 05/17/2021 at 19:55
--- NOTE | 2021-05-17 17:28 | DI.ECHO.S_ITS ---
[facility] +---------+ : : [address] : [address] : : : : [id number] : : : : Phone: [phone]+ Echocardiogram Report + + :Name: TAJ PAT Study Date: 05/18/2021 Height: 63.5 in: :[facility] ReadingLocation: Weight: 125 lb : : Gender: Female BSA: 1.6 m2 : :: 1960 Age: 60 yrs BP: 98/58 mmHg : :Reason For Study: TIA : :Ordering Physician: KELY, : :HOLDEN Performed By: Ankita Del Castillo : :Referring: HOLDEN EDGE : + + Interpretation Summary Normal sinus rhythm. Normal LV size, wall thickness, wall motion and LV systolic function. EF is 60-65%. Normal chamber sizes. No significant valvular abnormalities. No evidence of PFO. No source of embolism found. Procedure: A two-dimensional transthoracic echocardiogram with color flow and Doppler was performed. The study quality was technically adequate. The patient had an echocardiogram, but there is no comparison study available. The injection was performed through an intravenous line in the left arm. The patient was in sinus bradycardia with heart rates between 58-64 bpm during the exam. Left Ventricle: The left ventricle is normal in size and wall thickness. The ejection fraction is estimated to be 60-65%. Diastolic parameters suggest probable normal left ventricular diastolic function and normal filling pressures. Right Ventricle: The right ventricle is normal in size and function. Atria: The left atrial size is normal. Right atrial size is normal. There is no Doppler evidence for an interatrial shunt. Injection of contrast documented no interatrial shunt. Mitral Valve: There is mild mitral annular calcification. There is mild mitral regurgitation. Aortic Valve: The aortic valve is trileaflet. The aortic valve opens well. There is no aortic valve stenosis. There is trace aortic regurgitation. Tricuspid Valve: The tricuspid valve is normal in structure and function. There is trace tricuspid regurgitation. Pulmonary artery pressures cannot be estimated because of the lack of a measurable TR jet velocity but the IVC suggests a CVP of around 3 mmHg. Pulmonic Valve: The pulmonic valve leaflets are thin and pliable; valve motion is normal. There is mild pulmonic regurgitation. Great Vessels: The aortic root is normal size. The dimensions of the ascending aorta are normal. The IVC is of normal diameter and collapses greater than 50% with a sniff. This suggests a low right atrial pressure of 3 mm Hg. Pericardium/ Pleura There is no pericardial effusion. There is no pleural effusion. MMode/2D Measurements & Calculations LVIDd: 4.3 cm LVOT diam: 2.0 cm LVIDs: 2.8 cm Ao root diam: 3.2 cm FS: 35.4 % asc Aorta Diam: 3.2 cm IVSd: 0.75 cm Ao Arch Diam (Prox Trans): 2.6 cm LVPWd: 0.66 cm LV poe. diameter/BSA (cm/m^2): 2.7 LV sys. diameter/BSA (cm/m^2): 1.7 LA A2 area: 15.7 cm2 RA long axis: 4.5 cm LA A4 area: 14.7 cm2 RA area: 13.2 cm2 LA length (vol): 4.1 cm RA vol: 32.9 ml LA vol: 47.3 ml RA : 20.6 ml/m2 LA vol index: 29.7 ml/m2 IVC diam: 1.2 cm RVD1 (basal): 3.4 cm TAPSE: 2.0 cm Doppler Measurements & Calculations Ao V2 max: 111.6 cm/sec LVOT Max Oliverio: 105.3 cm/sec Ao V2 mean: 76.5 cm/sec LV V1 max P.4 mmHg Ao max P.0 mmHg LV V1 VTI: 24.2 cm Ao mean P.6 mmHg RAFA(I,D): 3.1 cm2 Ao V2 VTI: 24.2 cm RAFA(V,D): 2.9 cm2 sev ratio: 1.0 RAFA indexed to BSA (cm^2/m^2): 1.9 MV E max oliverio: 68.8 cm/sec PA pr(Accel): 17.3 mmHg MV A max oliverio: 46.0 cm/sec MV E/A: 1.5 Med Peak E' Oliverio: 6.3 cm/sec E/E' med: 10.8 Lat Peak E' Oliverio: 8.3 cm/sec E/E' lat: 8.3 E/e' average: 9.6 MV dec time: 0.23 sec SV(LVOT): 74.7 ml Electronically signed by: Cass Meyers M.D. on Reading Physician:05/18/2021 02:11 PM
[2021-05-17 17:46] VITALS: BP 115/59; PULSE 77; RESP 16; O2SAT 100
--- NOTE | 2021-05-17 18:23 | P.HP_ITS ---
History of Present Illness History of Present Illness Date Patient Seen: 05/17/21 Time Patient Seen: 17:00 Chief complaint: referred by Christopher, concerned about TIA Narrative: Ms. Simental is a 60W with PMH of depression, hypothyroidism who presents with headache, blurry vision, R leg weakness that is transient. She has had these episodes 4x in the last 6 months. Last episode was yesterday they are all transient and last seconds to minutes. She says that yesterday's episode occurred when she went from sitting to standing up. She felt lightheaded, right leg weakness, headache. Yesterday she had no blurry vision, but previous episodes she has. All these symptoms have essentially resolved. She has noticed intermittent palpitations, but these don't seem correlated with her presenting symptoms. She has no sensory deficits, no slurred speech, swallowing difficult ies. She has no chest pain, shortness of breath, abdominal pain, nausea, vomiting, diarrhea. She has not seen a medical provider for this. She has no new medications, takes no herbal or over the counter supplements. She called her PCP who directed her to the ED. In the ED workup was done, vitals unremarkable with normal blood pressure. EKG showed normal sinus. Labs notable WBC 6.4, hgb 13.6, Chemistries unremarkable, slight transaminitis with AST 54, ALT 92 which were normal in 2018. CT head and CT angio head/neck showed no acute process. She was admitted for further treatment. Family history notable for her father with CHF. Patient History Surgical History History of tonsillectomy Status post bilateral salpingo-oophorectomy (BSO) (05/21/17) Status post cholecystectomy Status post laparoscopic supracervical hysterectomy (05/21/17) Family & Social History Tobacco & Substance use: Smoking Status Never smoker Meds Home Medications and Allergies Home Medications Medication Instructions Recorded Confirmed Type lamotrigine 25 mg tablet (Lamictal) 25 mg PO QDAY #0 05/04/17 History levothyroxine 50 mcg tablet 50 mcg PO QAM #0 05/04/17 History mirtazapine 30 mg tablet 30 mg PO HS #0 05/21/17 History omeprazole 40 mg capsule,delayed 40 mg PO QAM #0 05/21/17 History release docusate sodium 100 mg capsule 100 mg PO BID #30 cap 05/23/17 Rx cyclobenzaprine 10 mg tablet 10 mg PO TID #30 tab 08/10/17 Rx oxycodone-acetaminophen 5 mg-325 0 tab PO Q4HP PRN #30 tab 09/14/17 Rx mg tablet (Percocet) amoxicillin 875 mg-potassium 875 mg PO BID #20 tab 10/06/17 Rx clavulanate 125 mg tablet (Augmentin) estradiol 0.075 mg/24 hr weekly QWEEK #0 10/06/17 History transdermal patch estradiol 10 mcg vaginal tablet 10 mcg VAGINAL SEE INSTRUCTIONS #8 11/14/17 Rx (Vagifem) tab gabapentin 100 mg capsule 100 mg PO QDAY #120 cap 01/02/18 Rx estradiol 1 mg tablet 1 mg PO DAILY #90 tab 09/18/18 Rx Allergies Allergy/AdvReac Type Severity Reaction Status Date / Time doxazosin Allergy Unknown SOB Unverified 02/06/18 13:01 fluoxetine [FLUOXETINE] Allergy Unknown HYPONATREMI Unverified 02/06/18 13:01 A meloxicam Allergy Unknown SOB Unverified 02/06/18 13:01 progesterone Allergy Unknown Unverified 02/06/18 13:01 [From PROMETRIUM] tamsulosin Allergy Unknown Unverified 02/06/18 13:01 terazosin Allergy Unknown SOB Unverified 02/06/18 13:01 venlafaxine [From EFFEXOR] Allergy Unknown HYPONATREMI Unverified 02/06/18 13:01 A paroxetine [PAROXETINE] AdvReac Unknown HYPONATREMI Unverified 02/06/18 13:01 A Review of Systems Review of Systems Narrative: 14 systems reviewed and negative aside from what is noted in HPI Exam Vital Signs (past 8 hours): - 05/17/21 14:02 05/17/21 17:46 Temperature 98.4 F Pulse Rate 85 77 Respiratory Rate 16 16 Blood Pressure 126/75 115/59 L Pulse Oximetry 100 100 Oxygen Delivery Method Room Air Narrative Exam Narrative: GEN: no acute distress HEENT: PERRL, moist mucous membranes NECK: trachea midline, no JVD CV: regular rate and rhythm with no murmurs PULM: clear bilaterally, no wheezes, rhonchi, rales ABD: soft, nontender, nondistended, no organomegaly, normal bowel sounds EXT: warm and well perfused with no edema SKIN: no rashes noted NEURO: awake alert and oriented, cranial nerves 2-12 intact, upper and lower motor strength 5/5, rapid alternating movements intact, heel to rose intact, no pronator drift PSYCH: cooperative, pleasant Objective Labs Result Diagrams: 05/17/21 14:20 05/17/21 14:20 Labs: Laboratory Results - last 24 hr 05/17/21 05/17/21 05/17/21 14:20 14:20 14:20 WBC 6.4 RBC 4.22 Hgb 13.6 Hct 39.7 MCV 94.0 MCH 32.2 MCHC 34.3 RDW 12.7 Plt Count 247 Neut % (Auto) 68.4 Lymph % (Auto) 23.3 L [place] % (Auto) 6.9 Eos % (Auto) 0.5 L Baso % (Auto) 0.9 Neut # (Auto) 4400 Lymph # (Auto) 1500 [place] # (Auto) 400 Eos # (Auto) 0 Baso # (Auto) 100 PT 11.7 INR 1.0 Sodium 138 Potassium 3.6 Chloride 102 Carbon Dioxide 29 BUN 12 Creatinine 0.65 Estimated GFR > 60.0 BUN/Creatinine Ratio 18.5 Glucose 88 Calcium 9.5 Total Bilirubin 0.4 AST 54 H ALT 92 H Alkaline Phosphatase 41 Total Protein 7.4 Albumin 4.4 Globulin 3.0 Albumin/Globulin Ratio 1.5 Assessment & Plan Assessment & Plan narrative: Ms. Simental is a 60W with PMH depression, hypothyroid who presents with transient right leg weakness, lightheadedness, headache. 1. Transient leg weakness, headache, lightheadedness -etiology not clear -differential includes more likely TIA, arrhythmia, orthostatic hypotension, other possibilities include less likely MS, thyroid imbalance, CVA -ordered for aspirin and high dose statin -MRI ordered to rule out CVA, ECHO ordered for further evaluation -PT/OT eval ordered -swallow screen ordered -keep on cardiac telemetry -lipids and a1c for risk stratification -may benefit from outpatient holter monitor if no etiology found 2. Depression -continue patient's mirtazapine, pristiq, zyprexa CODE: Full, proxy is Heath Simental, spouse DIET: Heart healthy DVT ppx: lovenox 40u sc Quality MIPS - Admit I confirm the patient?s Advance Care Plan is present, Code status is documented, Surrogate decision maker is in patient?s record [If Yes, STOP here]: Yes
[2021-05-17 19:00] VITALS: BP 102/67; PULSE 69; RESP 18; O2SAT 97
[2021-05-17 19:00] LABS: COVID19 - ADMIT (NP swab/PCR) Negative (Negative)
[2021-05-17 19:52] VITALS: BMI 22.1
[2021-05-17 20:17] VITALS: BP 100/62; BP 109/72; BP 113/74; PULSE 58; PULSE 65; PULSE 76
[2021-05-17] MEDS: MIRTAZAPINE 15 MG TABLET 30 MG PO (20:44)
[2021-05-17] MEDS: DESVENLAFAXINE SUCCINATE 50 MG 50 EACH PO (20:44)
[2021-05-17] MEDS: ATORVASTATIN 20 MG TABLET 80 MG PO (20:52)
[2021-05-17 23:00] VITALS: O2SAT 98
[2021-05-17 23:15] VITALS: BP 92/54; PULSE 67; RESP 13; TEMP 36.1; O2SAT 98
[2021-05-18 03:15] VITALS: BP 98/58; PULSE 62; RESP 14; TEMP 36.1; O2SAT 95
[2021-05-18 06:16] LABS: Alanine Aminotransferase 75 IU/L (<35); Albumin 3.8 g/dL (3.5-5.0); Albumin Globulin Ratio 1.6 (1.0-2.8); Alkaline Phosphatase 35 U/L (38-126); Aspartate Aminotransferase 40 IU/L (14-36); BUN Creatinine Ratio 16.2 (6-22); Bilirubin Total 0.3 mg/dL (0.2-1.3); Bilirubin Unconjugated 0.2 mg/dL (0.0-1.1); Blood Urea Nitrogen 11 mg/dL (7-17); Calcium 8.9 mg/dL (8.4-10.2); Carbon Dioxide 29 mmol/L (22-32); Chloride 105 mmol/L (98-107); Cholesterol 268 mg/dL (140-199); Estimated Glomerular Filt Rate > 60.0 mL/min (>60); Globulin 2.4 g/dL (1.7-4.1); Glucose 87 mg/dL (70-100); HDL Cholesterol 43 mg/dL (40-60); HEMOLYSIS < 15 (0-50); LDL Cholesterol Calculated 203 mg/dL (<100); Potassium 3.7 mmol/L (3.4-5.1); Sodium 140 mmol/L (137-145); Total Protein 6.2 g/dL (6.3-8.2); Triglycerides 110 mg/dL (35-150)
[2021-05-18 06:25] LABS: Add Manual Diff / Slide Review NO; Basophils Absolute Auto 0 /uL (0-100); Basophils Percent Auto 0.8 % (0-2); Eosinophils Absolute Auto 100 /uL (0-450); Eosinophils Percent Auto 1.6 % (2-4); Hematocrit 37.5 % (36-46); Hemoglobin 12.5 g/dL (12.0-16.0); Lymphocytes Absolute Auto 1800 /uL (1100-4500); Lymphocytes Percent Auto 43.4 % (25-40); Mean Corpuscular HGB Conc 33.4 % (30-36); Mean Corpuscular Hemoglobin 31.5 PG (26-34); Mean Corpuscular Volume 94.2 fL (80-100); Monocytes Absolute Auto 400 /uL (0-900); Monocytes Percent Auto 8.7 % (3-14); Neutrophils Absolute Auto 1800 /uL (1500-7000); Neutrophils Percent Auto 45.5 % (50-75); Platelet Count 245 X10^3/uL (150-400); Red Blood Cell Count 3.98 X10^6/uL (4.0-5.2); Red Cell Distribution Width 12.8 % (11.6-14.8)
[2021-05-18 07:00] VITALS: O2SAT 100
[2021-05-18 08:00] VITALS: BP 101/70; PULSE 62; RESP 18; TEMP 36.7; O2SAT 100
[2021-05-18] MEDS: ASPIRIN EC 81 MG TABLET PO (09:29)
[2021-05-18] MEDS: ENOXAPARIN 40 MG/0.4 ML SYRINGE SUBCUT (09:29)
[2021-05-18] MEDS: SODIUM CHLORIDE 0.9% 1,000 ML 1000 ML IV (09:35)
--- NOTE | 2021-05-18 10:23 | OT.IP.EVAL ---
Surgical History (Last Reviewed 05/18/21 @ 08:57 by Josette Walker DO) History of tonsillectomy Status post bilateral salpingo-oophorectomy (BSO) (05/21/17) Status post cholecystectomy Status post laparoscopic supracervical hysterectomy (05/21/17) Occupational Therapy Inpatient Evaluation/Re-Eval M1 PT/OT-IP Prior Functional Status Start: 05/18/21 12:47 Freq: NEEDED Status: Active Protocol: Document 05/18/21 12:47 [facility] (Rec: 05/18/21 13:05 [facility] [id number]) Medical Review Prior Functional Status Communication Independent Mobility and Gait Per pt independent and did not use a device. Activities of Daily Living and IADL's Completely independent with all ADl's, IADl's and drives. Social History Household Members spouse Living Arrangements House Number of Floors (Floors) Two Floors Number of Stairs To Enter/Railing? Pt has 5 steps with bilateral wide rails to get into the house. Pt has 4 steps with left rail and then landing and then another 15 steps with left rail to get to the second level. Pt states able to stay on the main level. Home Environment High Toilet,Walk in Shower Home Equipment Shower Seat without Backrest, Hand Held Shower M2 OT-IP Current Condition Start: 05/18/21 12:47 Freq: Status: Active Protocol: Document 05/18/21 12:47 [facility] (Rec: 05/18/21 13:05 [facility] [id number]) Occupational Therapy Current Condition Current Condition Evaluation Date 05/18/21 Treatment Diagnosis Probable TIA, decreased balance Diagnosis Onset Date 05/17/21 M3 OT- IP Subjective and Pain Start: 05/18/21 12:47 Freq: Status: Active Protocol: Document 05/18/21 12:47 [facility] (Rec: 05/18/21 13:05 [facility] [id number]) OT- Subjective Occupational Therapy Visit Type Type Initial Evaluation Visit Start Time 10:08 Visit Stop Time 10:23 Total Visit Minutes 15 Occupational Therapy Visit Comments Patient Comments Pt agreed to get up for OT eval. Patient/Caregiver Goals To go home. OT Pain Assessment Pain When Pain Assessed At Rest Pain Present Pain Present Denied Pain M4 OT- IP ADL's Start: 05/18/21 12:47 Freq: Status: Active Protocol: Document 05/18/21 12:47 [facility] (Rec: 05/18/21 13:05 [facility] [id number]) OT [id number] Comments OT Self-Feeding Comments Not at meal time, but pt states able to do on her own. OT ADL-Grooming Comments OT Grooming Comments Pt states did on her own earlier. OT ADL-Dressing General Eval Lower Body Dressing Ability Standby Assistance Comments OT Dressing Comments Pt due to decreased dynamic balance best to sit form LB dressing needs. Pt attempted to kody/doff her socks while standing and had LOB and needing AYAN for her balance. OT ADL-Toileting Comments OT Toileting Comments Per CAN, pt has been independent for all toileting needs. OT ADL-Bathing Comments OT Bathing Comments Pt states to shower at home. M5 OT- IP IADL's Start: 05/18/21 12:47 Freq: Status: Active Protocol: Document 05/18/21 12:47 [facility] (Rec: 05/18/21 13:05 [facility] [id number]) OT-Instrumental Activities of Daily Living Home Safety Awareness Awareness of Need for Assistance at Home Good Awareness Ability to Problem Solve Emergency Able to Problem Solve Situations Medication Management Medication Management Comments Money Management Money Management Comments Meal Preparation Comments Auditor In Charge Auditor In Charge Comments Driving Driving Concerns Identified Regarding Safety M6 OT- IP Functional Cognition Start: 05/18/21 12:47 Freq: Status: Active Protocol: Document 05/18/21 12:47 [facility] (Rec: 05/18/21 13:05 [facility] [id number]) Cognitive Factors Limiting Selfcare Function Cognitive Ability Level of Alertness Alert Patient Orientation Name,Age,Birthday,Month,Date, Year,Day of Week,Place, Situation Attention Span Ability Capable of Focused Attention, Capable of Sustained Attention Ability to Follow Commands Able to Follow Multi-Step Commands Memory Description No Deficits Noted Safety Awareness No Deficits Noted Problem Solving Ability No deficits Noted Executive Function Ability Unable to Filter Distractions Cognitive Comments Cognitive Assessment Comments Pt gets distracted at times esepcially during [place] Making PartB and scored 97 seconds which implies below 20th % for her age and implies mild impairments for visual attention, speed of processing , mental flexibility, executive function and task switching. Suggested pt not drive and that her drives for now. OT- Vision and Hearing OT- Hearing Assessment OT- Hearing Assessment WFL OT- Vision Assessment Occular Pursuits WFL Visual Convergence WFL Visual Robertson WFL Diplopia Absent Visual Spacial Neglect Not Applicable M7 OT- IP Mobility and Balance Start: 05/18/21 12:47 Freq: Status: Active Protocol: Document 05/18/21 12:47 [facility] (Rec: 05/18/21 13:05 [facility] [id number]) OT- Bed Mobility Assessment Rolling Type of Rolling Roll to Right Level of Assistance Independent Supine to Sit Supine to Sit Assist Independent Sit to Supine Sit to Supine Assist Independent OT-Transfer Assessment Sit to and From Stand Sit to and from Stand Independent Transfers Transfer Ability Independent Technique Transfer Destination Bed Comments Mobility Comments Pt independently able to get out of be and stand and get back to bed. OT- Balance Assessment Sitting Balance and Reactions Static Sitting Balance Ability Normal Dynamic Sitting Balance Ability Normal Standing Balance and Reactions Static Standing Balance Ability Good Dynamic Standing Balance Ability Poor Comments Other Balance Tests/Deviations/Treatment Pt having loss of balance while : trying to stand to kody/doff her socks. Educated to sit until able to improve her balance . M8 OT- IP Objective Assessments Start: 05/18/21 12:47 Freq: Status: Active Protocol: Document 05/18/21 12:47 [facility] (Rec: 05/18/21 13:05 [facility] [id number]) OT Gross Range of Motion Upper Extremity Range of Motion Assessment Within Functional Limits OT Strength Upper Extremity Strength Assessment Within Functional Limits OT- Coordination Assessment Upper Extremity Finger to Nose Test Within Functional Limits OT-Muscle Tone Assessment Muscle Tone WNL Yes M9 OT- IP Assessment and Plan Start: 05/18/21 12:47 Freq: Status: Active Protocol: Document 05/18/21 12:47 [facility] (Rec: 05/18/21 13:05 [facility] [id number]) OT Summary Assessment and Plan Potential Rehabilitation Potential Good Analytic Complexity at Evaluation Low Summary OT Impairments Balance,Functional Cognition, Bathing Progress Towards Goals Progressing Toward Goals Assessment Summary Pt here due to probable TIA and main barriers are decreased dynamic balance, steps, and having difficulty with high level executive functioning as scored 97 seconds on [place] making Part B which implies below 20th % for her age and implies mild impairments for visual attention, speed of processing , mental flexibility, executive function and task switching. Suggested pt not drive and that her drives for now. Pt to go home with her when medically stable. Pt's aware to provide supervision to monitor how pt does at home especially for dynamic balance needs. Goals Dressing Goal Independent Bathing Goal Independent Shower Transfer Goal Independent Days to Meet Goals 1 Frequency of Treatment Frequency Of Treatment Once a Day Treatment Plan OT Treatment Plan ADL Training,Functional Cognition Training,Functional Mobility,Patient/Family Education,Discharge Planning Other Treatment Recommendations and Next Shower if still here. Treatment Focus Discharge Recommendations OT Discharge Recommendations Home with Assistance Transportation Needs at Discharge Private Vehicle
--- NOTE | 2021-05-18 11:18 | CM.DANOTE ---
Patient is a 60 yo female who was admitted on 05/18/21 for TIA. Pt has [facility] [employer] for insurance and her PCP is Dr. Hong White. EMR was reviewed. Per MD, pt admitted to r/o CVA and to have MRI and Echo today and pending results likely stable for d/c home with spouse. SW met bedside with pt and spouse and explained role and they confirm that they live at home in [place] and pt is quite active and independent and denies any hx of HH or SNF and does not use equipment to ambulate. Pt and spouse do not anticipate any SW needs and preference is home today via spouse POV if medically stable. PT/OT ordered and pending but likely not needed. Plan: SW to follow for plan of d/c home today via spouse POV pending Echo results. No needs anticipated. MIKKI Landrum Discharge Planning/Care Management CM Discharge Assessment Start: 05/18/21 11:15 Freq: Status: Active Protocol: Document 05/18/21 11:17 [facility] (Rec: 05/18/21 11:18 [facility] [id number]) Discharge Planning Assessment Assigned Shanker Out MIKKI Fernandez DPOA/Assigned Designee Name spouse Heath Contact Information [phone] Advance Directives? No Advance Directives on File No History Provided By Patient,Significant Other, Medical Record Has Patient been admitted in last 30 No days? Prior Living Arrangements House Household Members spouse Type of transporation used prior to Drives own vehicle admit Independent with ADL's Yes Is patient alert and oriented? Yes Caregiver for Another No Barriers to Discharge No Discharge Plan Home Transportation Arrangement Spouse is bedside and plans to transport Referrals Initiated None needed Whiteboard Updated in Patient Room with Yes name and ext. # of Shanker Out Review Status In Process Please Provide Date Initial DC 05/18/21 Assessment Was Performed Next Review Type Continued Stay Review
--- NOTE | 2021-05-18 13:41 | PT.IIE ---
Surgical History (Last Reviewed 05/18/21 @ 08:57 by Josette Walker DO) History of tonsillectomy Status post bilateral salpingo-oophorectomy (BSO) (05/21/17) Status post cholecystectomy Status post laparoscopic supracervical hysterectomy (05/21/17) Physical Therapy Inpatient Evaluation/Re-Eval M1 PT/OT-IP Prior Functional Status Start: 05/18/21 12:47 Freq: NEEDED Status: Active Protocol: Document 05/18/21 13:41 AB (Rec: 05/18/21 14:39 AB [id number]) Medical Review Prior Functional Status Medical History Reviewed Yes Communication able to make needs known Mobility and Gait pt stated that she is indpendent with all mobilities and ambulation without AD Activities of Daily Living and IADL's independent and able to drive Social History Household Members spouse Living Arrangements House Number of Floors (Floors) Two Floors Number of Stairs To Enter/Railing? pt stays on main level of the house has 5 steps to enter with wide bilateral rail and usually L rail to enter Home Environment High Toilet,Walk in Shower, Built-In Shower Seat Home Equipment Hand Held Shower M2 PT-IP Current Condition Start: 05/18/21 14:28 Freq: NEEDED Status: Active Protocol: Document 05/18/21 13:41 AB (Rec: 05/18/21 14:39 AB [id number]) Physical Therapy Current Condition Current Condition Evaluation Date 05/18/21 Treatment Diagnosis TIA; difficulty in walking Onset Date 05/17/21 M3 PT-IP Subjective Start: 05/18/21 14:28 Freq: NEEDED Status: Active Protocol: Document 05/18/21 13:41 AB (Rec: 05/18/21 14:39 AB [email or web address]) Subjective Physical Therapy Visit Type Type Initial Evaluation Visit Start Time 13:41 Visit Stop Time 14:00 Total Visit Minutes 19 Number of STAFF AUDITOR Visits 0 Physical Therapy Visit Comments Patient Comments agreeable to do PT Therapy Pain Assessment Pain Present Pain Present Denied Pain M4 PT-IP Mobility and Gait Start: 05/18/21 14:28 Freq: NEEDED Status: Active Protocol: Document 05/18/21 13:41 AB (Rec: 05/18/21 14:39 AB [id number]) PT-Bed Mobility Assessment Supine to Sit Supine to Sit Independent Sit to Supine Sit to Supine Independent Scooting Scooting to Edge of Bed Independent PT-Transfer Assessment Sit to and From Stand Sit to and from Stand Independent Equipment Transfer Assistive Device None Orthotic/Prosthetic Devices or Brace: No Transfer Ability Level of Assist Independent Comments Mobility Comments completed supine to sit independent. ambulated in room without AD independent. no LOB. balance assessment: static standing with EC and narrow CHRISSY: N , standing with perturbations: G, single leg stance: LLE N, RLE: G completed five sit<>stand no UE use: completed in 9 sec. ambulated out in the hallway ~ 200 ft without AD independent without LOB or deviation. completed up/down steps using L rail SBA . pt ambulated back in room . sat on EOB. informed pt regarding exercises/activity for RLE. RLE slightly weaker compared to LLE but has the same MMT grading. pt has no other concerns. stated that they are only waiting for the ECHO result and will d/c home. Gait Assessment Gait Gait Assistance Required: Independent Distance (Feet) 200 Able to Maintain Weight Bearing Status Yes During Gait Assistive Devices Assistive Device None Orthotic/Prosthetic Devices or Brace: No Gait Deviations General Gait Pattern Within Normal Limits Stair Climbing Assessment Evaluation Level of Assist On Stairs Standby Assistance Devices Stair Climbing Assistive Devices Left Railing Technique/Endurance Stair Climbing Direction Ascend and Descend Stair Climbing Technique Step Over Step,Step to Step Number of Steps Climbed 3 Query Text: Stair Climbing Set # Repetitions (reps) 1 PT-Balance Assessment Sitting Balance and Reactions Static Sitting Balance Ability Normal Dynamic Sitting Balance Ability Normal Standing Balance and Reactions Static Standing Balance Ability Normal Dynamic Standing Balance Ability Good Device Used without AD M5 PT-IP Objective Assessments Start: 05/18/21 14:28 Freq: NEEDED Status: Active Protocol: Document 05/18/21 13:41 AB (Rec: 05/18/21 14:39 AB [id number]) Orientation Orientation/Cognition Level of Alertness Alert Orientation Name,Age,Birthday,Month,Date, Year,Day of Week,Place, Situation Language Function Ability No Deficits Noted Safety Awareness Understands Safety Issues Memory Description No Deficits Noted Gross Range of Motion Lower Extremity ROM Assessment Within Functional Limits Strength Lower Extremity Strength Assessment Within Functional Limits Comments Strength Comments RLE slightly weaker compared to LLE but with the same MMT grading Coordination Assessment Gross Coordination Gross Coordination WNL Sensation Assessment Sensation Gross Sensation WNL Muscle Tone Muscle Tone WNL Yes M6 PT-IP Treatment Start: 05/18/21 14:28 Freq: NEEDED Status: Active Protocol: Document 05/18/21 13:41 AB (Rec: 05/18/21 14:39 AB [email or web address]) Physical Therapy Treatment Education Education Provided Safety M7 PT-IP Assessment and Plan Start: 05/18/21 14:28 Freq: NEEDED Status: Active Protocol: Document 05/18/21 13:41 AB (Rec: 05/18/21 14:39 AB [email or web address]) PT Summary Assessment and Plan Potential Rehabilitation Potential Excellent Status of Condition at Evaluation Stable Summary Progress Towards Goals Safe For Discharge Assessment Summary PT eval completed and no further PT intervention indicated at this time. pt is independent with mobility and ambulates without AD without LOB. pt will have her spouse to assist her as needed. Frequency of Treatment Frequency Of Treatment Discharge Recommendations To Nursing Amount of Assist Needed Independent Discharge Recommendations Transportation Needs at Discharge Private Vehicle
--- NOTE | 2021-05-18 15:35 | PC.NURSE ---
Pt A&OX3, pleasant. VSS, afebrile. Does report baseline BP in low 100's. Today IVF NS of 1 L administered per MD orders for slight hypotension. Pt denies neuro changes other than slight weakness to RLE 4/5 strength. Echo completed today. Pending results pt cleared for discharge today with follow up with PCP. This afternoon PT/OT clearing patient as well, echo results posted. Patient acknowledges agreement and understanding of medications, and follow up instructions. RN escorted to private vehicle with via w/ch this afternoon with all of her home medications and belongings.
--- NOTE | 2021-05-18 16:43 | P.DS_ITS ---
History of Present Illness History of Present Illness Chief complaint: referred by Christopher, concerned about TIA Narrative: Ms. Simental is a 60W with PMH of depression, hypothyroidism who presents with headache, blurry vision, R leg weakness that is transient. She has had these episodes 4x in the last 6 months. Last episode was yesterday they are all transient and last seconds to minutes. She says that yesterday's episode occurred when she went from sitting to standing up. She felt lightheaded, right leg weakness, headache. Yesterday she had no blurry vision, but previous episodes she has. All these symptoms have essentially resolved. She has noticed intermittent palpitations, but these don't seem correlated with her presenting symptoms. She has no sensory deficits, no slurred speech, swallowing difficulti es. She has no chest pain, shortness of breath, abdominal pain, nausea, vomiting, diarrhea. She has not seen a medical provider for this. She has no new medications, takes no herbal or over the counter supplements. She called her PCP who directed her to the ED. In the ED workup was done, vitals unremarkable with normal blood pressure. EKG showed normal sinus. Labs notable WBC 6.4, hgb 13.6, Chemistries unremarkable, slight transaminitis with AST 54, ALT 92 which were normal in 2018. CT head and CT angio head/neck showed no acute process. She was admitted for further treatment. Family history notable for her father with CHF. Discharge Providers Provider Date of admission: 05/17/21 18:20 Discharge Date: 05/18/21 Primary care physician: Hong White MD Consults: 05/17/21 17:27 Consult to Discharge Planning Routine Comment: Consult to Occupational Therapy Evaluate & Treat Comment: Physician Instructions: Evaluate and treat Consult to Physical Therapy Evaluate & Treat Comment: Physician Instructions: Evaluate and Treat Discharge provider: Jefferson Collier MD Summary Hospital Course Discharge Diagnosis: 1. Transient leg weakness, headache, lightheadness 2. Depression 3. Borderline hypotension 4. Transaminitis 5. Hyperlipidemia Hospital Course: Ms. Simental presented with transient symptoms of leg weakness on the right, headache, dizzy, previously blurry vision, and occassionally palpitations. In the hospital she had no symptoms. Ct head, CT angio head/neck, MRI brain, and ECHO were unremarkable. Her blood pressure was low in the low 100s, her blood pressure dropped about 12 systolic points on orthostatic testing, but she felt no symptoms. She received IV fluids. Cardiac telemetry was unremarkable. Etiology could be possibly orthostatic hypotension or possibly arrhythmia. She was encouraged to to keep hydrated and eat slightly more salty foods. She was referred back to PCP with recommendation of holter monitor. She had mild transaminitis which should be followed with her PCP to ensure it resolves. She had hyperlipidemia which she did not want to start a medication for currently, but will discuss further with PCP about medication and dietary changes. Exam Vital Signs (past 8 hours): Oxygen Delivery Method Room Air Oxygen Flow Rate 0 Narrative Exam Narrative: GEN: no acute distress HEENT: PERRL, moist mucous membranes NECK: trachea midline, no JVD CV: regular rate and rhythm with no murmurs PULM: clear bilaterally, no wheezes, rhonchi, rales ABD: soft, nontender, nondistended, no organomegaly, normal bowel sounds EXT: warm and well perfused with no edema SKIN: no rashes noted NEURO: awake alert and oriented, cranial nerves 2-12 intact, upper and lower motor strength 5/5, rapid alternating movements intact, heel to rose intact, no pronator drift PSYCH: cooperative, pleasant Objective Labs Result Diagrams: 05/18/21 05:30 05/18/21 05:30 Labs: Laboratory Results - last 24 hr 05/17/21 05/17/21 05/18/21 14:20 18:06 05:30 WBC 4.0 L RBC 3.98 L Hgb 12.5 Hct 37.5 MCV 94.2 MCH 31.5 MCHC 33.4 RDW 12.8 Plt Count 245 Neut % (Auto) 45.5 L D Lymph % (Auto) 43.4 H D [place] % (Auto) 8.7 Eos % (Auto) 1.6 L Baso % (Auto) 0.8 Neut # (Auto) 1800 Lymph # (Auto) 1800 [place] # (Auto) 400 Eos # (Auto) 100 Baso # (Auto) 0 Sodium Potassium Chloride Carbon Dioxide BUN Creatinine Estimated GFR BUN/Creatinine Ratio Glucose Hemoglobin A1c Calcium Total Bilirubin Conjugated Bilirubin Unconjugated Bilirubin AST ALT Alkaline Phosphatase Total Protein Albumin Globulin Albumin/Globulin Ratio Triglycerides Cholesterol LDL Cholesterol, Calc HDL Cholesterol TSH 1.30 SARS-CoV-2 (PCR) Negative 05/18/21 05/18/2105/18/21 05:30 05:30 05:30 WBC RBC Hgb Hct MCV MCH MCHC RDW Plt Count Neut % (Auto) Lymph % (Auto) [place] % (Auto) Eos % (Auto) Baso % (Auto) Neut # (Auto) Lymph # (Auto) [place] # (Auto) Eos # (Auto) Baso # (Auto) Sodium 140 Potassium 3.7 Chloride 105 Carbon Dioxide 29 BUN 11 Creatinine 0.68 Estimated GFR > 60.0 BUN/Creatinine Ratio 16.2 Glucose 87 Hemoglobin A1c 5.0 Calcium 8.9 Total Bilirubin 0.3 Conjugated Bilirubin 0.0 Unconjugated Bilirubin 0.2 AST 40 H ALT 75 H Alkaline Phosphatase 35 L Total Protein 6.2 L Albumin 3.8 Globulin 2.4 Albumin/Globulin Ratio 1.6 Triglycerides 110 Cholesterol 268 H LDL Cholesterol, Calc 203 H HDL Cholesterol 43 TSH SARS-CoV-2 (PCR) [facility] Surgical History History of tonsillectomy Status post bilateral salpingo-oophorectomy (BSO) (05/21/17) Status post cholecystectomy Status post laparoscopic supracervical hysterectomy (05/21/17) Social History household members: spouse Smoking Status: Never smoker alcohol intake: never Discharge Plan Discharge Plan Patient Disposition: Home Provider Discharge Comment: Ms. Simental came in to the hospital with transient episode of lightheadedness, blurry vision, R leg weakness, and headache. This had resolved by the time she was in the hospital. She had workup done that showed no stroke or any other brain abnormality. She had cardiac monitoring that showed no abnormal heart rhythm. Her ECHO showed no abnormalities. She did have slightly low blood pressure that dropped slightly when she stood up, but she didn't have any symptoms here when that happened. She may have a short lasting abnormal heart rhythm that did not occur while in the hospital, to further evaluate we recommend following up with her PCP for a holter monitor to monitor her heart for two weeks. She also might have orthostatic hypotension and we encourage her to keep hydrated, add a bit more salt to her diet, and follow up with her PCP. She had a slightly high cholesterol and slightly high liver tests. Rather than start any medications here, she will follow up with her PCP to discuss starting a cholesterol medication, and to make sure her liver test goes back to normal. Discharge orders & Medications Prescriptions: Continued levothyroxine 50 MCG tablet 50 mcg PO QAM Qty: 0 RF: 0 mirtazapine 30 MG tablet 30 mg PO HS Qty: 0 RF: 0 estradiol 1 mg tablet 0.5 mg PO DAILY RF: 0 desvenlafaxine succinate [Pristiq] 50 mg tablet extended release 24 hr 50 mg PO BEDTIME RF: 0 olanzapine [Zyprexa] 10 mg Tablet 10 mg PO 1700 RF: 0 Follow up/Referrals: Hong White MD [Primary Care Provider] - Diet/Activity/Treatments Diet: Regular Visit Report/Discharge Packet Instructions: DI for Stroke-Ischemic, DI for Transient Ischemic Attack Discharge Data Primary Care Provider: Hong White V Attending Provider: Jefferson Collier [facility] [place] The patient has current or prior documentation of left ventricular ejection fr action (LVEF) less than 40%, or moderate or severely depressed left ventricular systolic function.: No
== END 2021-05-18 15:00 | disposition home or self-care (01) ==
LOC: ED 18:19 → AC 18:20
PROVIDERS: Admitting Provider Internal Medicine; Emergency Provider Emergency Medicine; PCP Internal Medicine; Referring Provider Emergency Medicine; Visit Provider Internal Medicine
DX: R51.9 Headache, unspecified (principal); R74.01 Elevation of levels of liver transaminase levels; R00.2 Palpitations; R53.1 Weakness; H53.8 Other visual disturbances; R42 Dizziness and giddiness; F32.9 Major depressive disorder, single episode, unspecified; E03.9 Hypothyroidism, unspecified; E78.5 Hyperlipidemia, unspecified; Z20.822 Contact with and (suspected) exposure to COVID-19
CPT/HCPCS: 36415; 70450; 70496; 70498; 70548; 70553; 80048; 80053; 80061; 80076; 83036; 84443; 85025; 85610; 87635; 93005; 93010; 93306; 96360; 96372; 97161; 97165; 97530; 99284; C9803; G0378; J1650; Q9967

== ENCOUNTER → 2021-09-06 12:04 | Outpatient (CLI) | payer OTHER, SELFPAY ==
[2021-09-06 12:32] LABS: COVID19 -Nasal RAPID Negative (Negative)
== END ==
PROVIDERS: PCP Internal Medicine; Visit Provider Nurse Practitioner Family
DX: Z20.822 Contact with and (suspected) exposure to COVID-19 (principal)
CPT/HCPCS: 87635

== ENCOUNTER → 2022-01-24 15:49 | Outpatient (CLI) | payer OTHER, SELFPAY ==
--- NOTE | 2022-01-24 | DI.MG.S_ITS ---
BILATERAL DIGITAL SCREENING MAMMOGRAM 3D/2D WITH CAD: 01/24/2022 CLINICAL: Routine screening. Family history of breast cancer. Comparison is made to exams dated: 10/16/2020 mammogram, 09/06/2019 mammogram, 08/08/2018 mammogram, 07/05/2017 mammogram - [facility], and 06/09/2016 mammogram - [facility]. The tissue of both breasts is heterogeneously dense. This may lower the sensitivity of mammography. Current study was also evaluated with a Computer Aided Detection (CAD) system. No significant masses, calcifications, or other findings are seen in either breast. There has been no significant interval change. IMPRESSION: NEGATIVE There is no mammographic evidence of malignancy. A 1 year screening mammogram is recommended. This exam was interpreted at Station ID: [id number]. NOTE: For mammograms, a report in lay terms will be sent to the patient. Approximately 15% of breast malignancies will not be visualized mammographically. In the management of a palpable breast mass, a negative mammogram must not discourage biopsy of a clinically suspicious lesion. Electronically Signed By: Nathanael harrison/linda:01/25/2022 10:12:30 letter sent: Normal Exam ACR BI-RADS Category 1: Negative [id number]
== END ==
PROVIDERS: PCP Internal Medicine; Referring Provider Internal Medicine; Visit Provider Internal Medicine
DX: Z12.31 Encounter for screening mammogram for malignant neoplasm of breast (principal); Z80.3 Family history of malignant neoplasm of breast
CPT/HCPCS: 77063; 77067

== ENCOUNTER → 2022-04-26 09:44 | Outpatient (CLI) | payer OTHER, SELFPAY ==
--- NOTE | 2022-04-26 | DI.MRI.S_ITS ---
PROCEDURE: MR HEAD/BRAIN WO/W CON INDICATIONS: Transient cerebral ischemic attack, unspecified TECHNIQUE: Noncontrast axial T1 spin echo, axial T2 fast spin echo, sagittal and axial FLAIR, coronal T2 fast spin echo, axial gradient echo, axial diffusion and ADC through the brain. After the administration of contrast, axial and coronal and sagittal 3D VIBE or T1 spin echo with fat saturation through the brain. COMPARISON: None. FINDINGS: Image quality: Excellent. CSF Spaces: Basal cisterns are patent. No extra-axial fluid collections. Ventricles are normal in size and shape. Brain: No midline shift. No intracranial bleeds or masses. No abnormal intracranial enhancement. The brainstem appears normal. Diffusion-weighted images demonstrate no acute ischemic insults. No chronic ischemic insults. Normal intravascular flow voids are present. Skull and face: Calvarial marrow is normal in signal. Orbits appear normal. Unilateral right intra-ocular lens replacement noted. Sinuses: Sinuses and mastoids appear clear. IMPRESSION: Normal MRI of the brain with and without contrast Approved by: Vijay Andrade M.D. on 04/26/2022 at 12:21
--- NOTE | 2022-04-26 | DI.US.S_ITS ---
PROCEDURE: US CAROTID DOPPLER BI INDICATIONS: Transient cerebral ischemic attack, unspecified TECHNIQUE: Color and pulse Doppler interrogation was performed of both carotid systems, with image documentation and velocity measurements. COMPARISON: None. FINDINGS: Stenosis calculations are based on SRU (Society of Radiologists in Ultrasound) criteria. Right side: Brachial blood pressure: 119/78 mm Hg. Common carotid artery peak systolic velocity: 116 cm/sec. Internal carotid artery peak systolic velocity: 69 cm/sec. Internal carotid artery end diastolic velocity: 32 cm/sec. External carotid artery peak systolic velocity: 71 cm/sec. ICA/CCA peak systolic ratio: 0.6 . Wheeler scale imaging description: Possible small amount of intimal thickening versus soft plaque at the bulb. Percent internal carotid artery stenosis: Less than 50% . Vertebral artery: Flow direction is antegrade. Left side: Brachial blood pressure: 124/82 mm Hg. Common carotid artery peak systolic velocity: 101 cm/sec. Internal carotid artery peak systolic velocity: 74 cm/sec. Internal carotid artery end diastolic velocity: 29 cm/sec. External carotid artery peak systolic velocity: 65 cm/sec. ICA/CCA peak systolic ratio: 0.7 . Wheeler scale imaging description: Possible small amount of intimal thickening versus soft plaque at the bulb. Percent internal carotid artery stenosis: Less than 50% . Vertebral artery: Flow direction is antegrade. IMPRESSION: No ultrasound evidence of significant internal carotid artery stenosis. Dictated by: Vish Goode M.D. on 04/26/2022 at 13:21 Approved by: Vish Goode M.D. on 04/26/2022 at 13:27
== END ==
PROVIDERS: PCP Internal Medicine; Referring Provider Internal Medicine; Visit Provider Internal Medicine
DX: G45.9 Transient cerebral ischemic attack, unspecified (principal)
CPT/HCPCS: 70553; 93880; A9579

== ENCOUNTER → 2022-06-19 16:04 | Outpatient (CLI) | payer OTHER, SELFPAY ==
--- NOTE | 2022-06-19 16:05 | DI.ECHO.S_ITS ---
[facility] +---------+ : : [address] [place] : : : : [id number] : : : : Phone: [phone]+ Echocardiogram Report + + :Name: TAJ PAT Study Date: 06/19/2022 Height: 63.5 in: :[facility] ReadingLocation: Weight: 135 lb : : Gender: Female BSA: 1.6 m2 : :: 1960 Age: 61 yrs BP: 109/81 mmHg: :Reason For Study: TIA : :Ordering Physician: CHRISTIANO, : :JAVIER Tran MD Performed By: Ankita Del Castillo : :Referring: JAVIER ALVARADO : + + Interpretation Summary Normal both left and right ventricle size and function. The ejection fraction is 60-65%. No significant valvular abnormality. Injection of contrast documented no interatrial shunt. Procedure: A two-dimensional transthoracic echocardiogram with color flow and Doppler was performed. The study quality was technically adequate. A saline contrast injection was performed to assess for cardiac shunting. Comparison is made with the echocardiogram of 05/18/2021. The patient was in sinus rhythm with heart rates between 65-75 bpm during the exam. Left Ventricle: The left ventricle is normal in size and wall thickness. The ejection fraction is estimated to be 60-65%. There are no focal wall motion abnormalities. Right Ventricle: The right ventricle is normal in size and function. Atria: The left atrial size is normal. Right atrial size is normal. There is no Doppler evidence for an interatrial shunt. Injection of contrast documented no interatrial shunt. Mitral Valve: The mitral valve is normal in structure and function. There is no mitral regurgitation noted. Aortic Valve: The aortic valve is trileaflet. The aortic valve opens well. There is no aortic valve stenosis. There is trace aortic regurgitation. Tricuspid Valve: The tricuspid valve is normal in structure and function. There is mild tricuspid regurgitation. The right ventricular systolic pressure is estimated to be at least 17 mmHg based on an estimated right atrial pressure of 3 mm Hg. Pulmonic Valve: The pulmonic valve is not well seen, but is grossly normal. There is no pulmonic valvular regurgitation. Great Vessels: The aortic root is normal size. The dimensions of the ascending aorta are normal. The IVC is of normal diameter and collapses greater than 50% with a sniff. This suggests a low right atrial pressure of 3 mm Hg. Pericardium/ Pleura There is no pericardial effusion. There is no pleural effusion. MMode/2D Measurements & Calculations LVIDd: 3.7 cm LVOT diam: 2.0 cm LVIDs: 2.7 cm Ao root diam: 3.4 cm FS: 27.2 % asc Aorta Diam: 3.2 cm IVSd: 0.84 cm Ao Arch Diam (Prox Trans): 2.5 cm LVPWd: 0.72 cm LV poe. diameter/BSA (cm/m^2): 2.3 LV sys. diameter/BSA (cm/m^2): 1.6 LA A2 area: 16.1 cm2 RA long axis: 4.3 cm LA A4 area: 13.0 cm2 RA area: 12.7 cm2 LA length (vol): 3.9 cm RA vol: 32.0 ml LA vol: 45.1 ml RA : 19.4 ml/m2 LA vol index: 27.4 ml/m2 IVC diam: 1.4 cm RVD1 (basal): 3.8 cm RVD2 (mid): 3.3 cm TAPSE: 2.1 cm Doppler Measurements & Calculations Ao V2 max: 122.0 cm/sec LVOT Max Oliverio: 114.1 cm/sec Ao V2 mean: 82.6 cm/sec LV V1 max P.2 mmHg Ao max P.9 mmHg LV V1 VTI: 24.1 cm Ao mean P.2 mmHg ARFA(I,D): 3.0 cm2 Ao V2 VTI: 24.8 cm RAFA(V,D): 2.9 cm2 sev ratio: 0.97 RAFA indexed to BSA (cm^2/m^2): 1.8 MV E max oliverio: 67.9 cm/sec TR max oliverio: 186.2 cm/sec MV A max oliverio: 66.1 cm/sec TR max P.9 mmHg MV E/A: 1.0 PA V2 max: 70.0 cm/sec Med Peak E' Oliverio: 4.8 cm/sec PA V2 mean: 46.4 cm/sec E/E' med: 14.1 PA mean P.0 mmHg Lat Peak E' Oliverio: 6.4 cm/sec PA pr(Accel): 10.5 mmHg E/E' lat: 10.7 E/e' average: 12.4 MV dec time: 0.26 sec [facility] 73.8 ml Electronically signed by: Myesha Magallanes on Reading Physician:06/19/2022 07:33 PM
== END ==
PROVIDERS: Referring Provider Internal Medicine; Visit Provider Internal Medicine
DX: G45.9 Transient cerebral ischemic attack, unspecified (principal); I07.1 Rheumatic tricuspid insufficiency
CPT/HCPCS: 93306

== ENCOUNTER → 2023-01-26 08:28 | Outpatient (CLI) | payer OTHER, SELFPAY ==
--- NOTE | 2023-01-26 | DI.RAD.S_ITS ---
PROCEDURE: XR LUMBAR SPINE 2-3V INDICATIONS: BACK PAIN TECHNIQUE: 3 views of the lumbar spine were acquired. COMPARISON: None. FINDINGS: Bones: 5 [id number] vertebrae are present. There appear to be bilateral pars defects present at L5-S1 with approximately 1 cm anterolisthesis L5 on S1. There is a moderate thoracolumbar scoliosis convex to the left. There is moderate to severe degenerative disc disease present at L5-S1. Mild degenerative disc disease is noted on remaining levels of the lumbar spine. No vertebral body compression fractures. No suspicious bony lesions. Soft tissues: Overlying bowel gas pattern is normal. No suspicious soft tissue calcifications. IMPRESSION: 1. Bilateral pars defects present at L5-S1 with 1 cm anterolisthesis L5 on S1. 2. Moderate to severe degenerative disc disease present at L5-S1 3. Mild degenerative disc disease all remaining levels of the lumbar spine. 4. Moderate lumbar scoliosis convex to the left. Dictated by: Felice Jacob M.D. on 01/26/2023 at 11:08 Approved by: Felice Jacob M.D. on 01/26/2023 at 11:13
== END ==
PROVIDERS: PCP Internal Medicine; Referring Provider Internal Medicine; Visit Provider Internal Medicine
DX: M51.36 Other intervertebral disc degeneration, lumbar region (principal); M54.16 Radiculopathy, lumbar region; M43.06 Spondylolysis, lumbar region; M41.86 Other forms of scoliosis, lumbar region
CPT/HCPCS: 72100

== ENCOUNTER → 2023-03-13 15:44 | Outpatient (CLI) | payer OTHER, SELFPAY ==
--- NOTE | 2023-03-13 15:45 | DI.MRI.S_ITS ---
PROCEDURE: MR THORACIC SPINE WO/W CON INDICATIONS: Ataxia, unspecified TECHNIQUE: Noncontrast sagittal T1 spin echo and T2 fast spin echo, sagittal STIR, axial T1 and T2 fast spin echo through the thoracic spine. After the administration of contrast, axial and sagittal T1 spin echo with fat saturation through the thoracic spine. COMPARISON: None. FINDINGS: Image quality: Excellent. Alignment and curvature: There is rightward scoliotic curvature within the thoracic spine. Marrow: Marrow is of normal overall signal. No acute vertebral body compression fractures. Spinal cord: Visualized spinal cord is of normal signal and size, without abnormal enhancement. Paraspinous soft tissues: No paravertebral masses or abnormal enhancement. Miscellaneous: Minimal scattered multilevel disc bulges. Mild left foraminal narrowing T8-9, T9-10. No spinal stenosis. IMPRESSION: Prominent scoliotic curvature. Scattered areas of disc bulges as well as foraminal narrowing as above. Dictated by: Victoria Davis M.D. on 03/13/2023 at 17:53 Approved by: Victoria Davis M.D. on 03/13/2023 at 17:55
--- NOTE | 2023-03-13 15:45 | DI.MRI.S_ITS ---
PROCEDURE: MR CERVICAL SPINE WO/W CON INDICATIONS: Ataxia, unspecified TECHNIQUE: Noncontrast sagittal T1 spin echo and T2 fast spin echo, sagittal STIR, foraminal oblique sagittal T2 fast spin echo, axial gradient echo or T2 fast spin echo through the cervical spine. After the administration of contrast, axial and sagittal T1 spin echo with fat saturation through the cervical spine. COMPARISON: None. FINDINGS: Image quality: Excellent. Alignment and curvature: There is reversal cervical curvature with apex at C4-5. There is grade 1 retrolisthesis of C4 on C5. Marrow: Marrow is normal in overall signal, without suspicious enhancement. Moderate reactive endplate changes are present at C6-7. Spinal cord: Visualized spinal cord has normal size and signal. No cerebellar tonsillar herniation. No abnormal intramedullary enhancement. Paraspinous soft tissues: No paravertebral masses or suspicious enhancement. Discs: Moderate to severe disc desiccation is present at C4-5, moderate C5-6, C6-7. C2-3: No disc bulge, spinal stenosis or foraminal narrowing. C3-4: Minimal disc bulge without spinal stenosis or foraminal narrowing. C4-5: Mild disc bulge with effacement of the anterior thecal sac. Minimal left foraminal narrowing with uncovertebral hypertrophy. C5-6: Mild disc bulge without spinal stenosis. Minimal to mild left foraminal narrowing. C6-7: Mild disc bulge with effacement of the anterior thecal sac. Minimal bilateral foraminal narrowing. C7-T1: No disc bulge, spinal stenosis or foraminal narrowing. IMPRESSION: Overall mild scattered degenerative changes as described above. No areas of abnormal enhancement are identified. Dictated by: Victoria Davis M.D. on 03/13/2023 at 17:50 Approved by: Victoria Davis M.D. on 03/13/2023 at 17:52
== END ==
PROVIDERS: PCP Internal Medicine; Referring Provider Psychiatry & Neurology Neurology; Visit Provider Psychiatry & Neurology Neurology
DX: M48.04 Spinal stenosis, thoracic region (principal); M47.812 Spondylosis without myelopathy or radiculopathy, cervical region; R27.0 Ataxia, unspecified
CPT/HCPCS: 72156; 72157; A9579

== ENCOUNTER → 2023-04-16 08:27 | Outpatient (CLI) | payer OTHER, SELFPAY ==
--- NOTE | 2023-04-16 | DI.MRI.S_ITS ---
PROCEDURE: MR LUMBAR SPINE WO/W CON INDICATIONS: Ataxia, unspecified TECHNIQUE: Noncontrast sagittal T1 spin echo and T2 fast echo, sagittal STIR, and T2 fast spin echo through the lumbar spine. In cases with scoliosis, additional coronal T2 fast spin echo may be performed. COMPARISON: [facility], MR, MR THORACIC SPINE WO/W CON, 03/13/2023, 15:48. [facility] [place], CR, XR LUMBAR SPINE WITH OBLIQUES PLUS FLEXION EXTENSION, 02/06/2023, 15:17. [facility], MR, L-SPINE WITHOUT CONTRAST, 11/15/2017, 15:07. FINDINGS: Image quality: Excellent. Alignment and Curvature: There is S shaped scoliosis. Grade 1/2 L5-S1 anterolisthesis is seen, with associated bilateral L5 pars defects. Bone Marrow: Marrow is of normal overall signal. No acute vertebral body compression fractures. Spinal Cord: Conus medullaris terminates at the L1 level. Visualized cord demonstrates normal signal and size. Paraspinous Soft Tissues: No paravertebral masses. T12-L1: Normal appearance. L1-L2: Normal appearance. L2-L3: Normal appearance. L3-L4: Normal appearance. L4-L5: [id number]-[id number] loss of disc height and disc signal can be seen. Mild to moderate disc bulge is seen, which is eccentric to the right. Moderate facet joint hypertrophy is seen. There is [id number] right-sided and mild left-sided neural foraminal narrowing. No central canal narrowing is seen. These imaging findings have progressed compared to the prior study. L5-S1: At least moderate loss of disc height and disc signal can be seen. Mild to moderate facet hypertrophy is seen. There is moderate right-sided and at least moderate left-sided neural foraminal narrowing. There is a degree of compression seen upon the exiting left L5 nerve root. Mild central canal narrowing is seen. There is mild progression compared to the prior. IMPRESSION: Lower lumbar spine degenerative changes are seen, which are worse than in 2018. Grade 1 L5-S1 anterolisthesis is seen. Associated bilateral L5 pars defects can be seen. No abnormal enhancement is seen. Dictated by: Leander Luna M.D. on 04/16/2023 at 16:07 Approved by: Leander Luna M.D. on 04/16/2023 at 16:12
== END ==
PROVIDERS: PCP Internal Medicine; Referring Provider Psychiatry & Neurology Neurology; Visit Provider Psychiatry & Neurology Neurology
DX: M47.816 Spondylosis without myelopathy or radiculopathy, lumbar region (principal); M47.817 Spondylosis without myelopathy or radiculopathy, lumbosacral region; M43.17 Spondylolisthesis, lumbosacral region; R27.0 Ataxia, unspecified
CPT/HCPCS: 72158

== ENCOUNTER → 2024-02-06 10:38 | Outpatient (CLI) | payer OTHER, SELFPAY ==
[2024-02-06 12:33] LABS: Add Manual Diff / Slide Review NO; Basophils Absolute Auto 0 /uL (0-100); Basophils Percent Auto 0.8 % (0-2); Eosinophils Absolute Auto 100 /uL (0-450); Eosinophils Percent Auto 1.3 % (2-4); Hematocrit 39.1 % (36-46); Hemoglobin 13.2 g/dL (12.0-16.0); Lymphocytes Absolute Auto 1600 /uL (1100-4500); Lymphocytes Percent Auto 39.4 % (25-40); Mean Corpuscular HGB Conc 33.7 % (30-36); Mean Corpuscular Hemoglobin 31.8 PG (26-34); Mean Corpuscular Volume 94.3 fL (80-100); Monocytes Absolute Auto 400 /uL (0-900); Monocytes Percent Auto 8.9 % (3-14); Neutrophils Absolute Auto 2100 /uL (1500-7000); Neutrophils Percent Auto 49.6 % (50-75); Platelet Count 225 X10^3/uL (150-400); Red Blood Cell Count 4.14 X10^6/uL (4.0-5.2); Red Cell Distribution Width 13.3 % (11.6-14.8); White Blood Cell Count 4.1 X10^3/uL (4.5-11.0)
[2024-02-06 12:36] LABS: Hemoglobin A1C% w Est Avg Glu 5.1 % (4.0-6.0)
[2024-02-06 13:04] LABS: Cholesterol 266 mg/dL (140-199); Glucose 80 mg/dL (80-110); HDL Cholesterol 50 mg/dL (40-60); LDL Cholesterol Calculated 200 mg/dL (<100); Triglycerides 81 mg/dL (35-150)
== END ==
PROVIDERS: PCP Internal Medicine; Referring Provider Psychiatry & Neurology Psychiatry; Visit Provider Psychiatry & Neurology Psychiatry
DX: F33.2 Major depressive disorder, recurrent severe without psychotic features (principal)
CPT/HCPCS: 36415; 80061; 82947; 83036; 85025

== ENCOUNTER → 2024-08-14 16:47 | Outpatient (CLI) | payer OTHER, SELFPAY ==
--- NOTE | 2024-08-14 16:48 | DI.MG.S_ITS ---
BILATERAL DIGITAL SCREENING MAMMOGRAM 3D/2D WITH CAD: 08/14/2024 CLINICAL: Routine screening. Family history of breast cancer. Comparison is made to exams dated: 01/24/2022 mammogram, 10/16/2020 mammogram, 09/06/2019 mammogram, 08/08/2018 mammogram, 07/05/2017 mammogram - [facility], and 06/09/2016 mammogram - [facility]. The breasts are heterogeneously dense, which may obscure small masses (category c / 51-75% glandular tissue). Current study was also evaluated with a Computer Aided Detection (CAD) system. No significant masses, calcifications, or other findings are seen in either breast. There has been no significant interval change. IMPRESSION: NEGATIVE There is no mammographic evidence of malignancy. A 1 year screening mammogram is recommended. Based on the Tyrer Cuzick model (a risk assessment model) the patient's lifetime risk is 11.4% and her 10 year risk is 5.0%. According to the ACR, ACS, and NCCN guidelines, an annual breast MRI exam along with mammogram is recommended if the patient's lifetime risk is 20% or greater. This exam was interpreted at Station ID: [id number]. NOTE: For mammograms, a report in lay terms will be sent to the patient. Approximately 15% of breast malignancies will not be visualized mammographically. In the management of a palpable breast mass, a negative mammogram must not discourage biopsy of a clinically suspicious lesion. Electronically Signed By: Davina Walsh M.D., Ph.D. [email or web address]:08/20/2024 01:37:03 letter sent: Normal Exam ACR BI-RADS Category 1: Negative
== END ==
PROVIDERS: PCP Internal Medicine; Referring Provider Internal Medicine; Visit Provider Internal Medicine
DX: Z12.31 Encounter for screening mammogram for malignant neoplasm of breast (principal); Z80.3 Family history of malignant neoplasm of breast; R92.333 Mammographic heterogeneous density, bilateral breasts
CPT/HCPCS: 77063; 77067

== ENCOUNTER → 2025-09-18 15:12 | Outpatient (CLI) | payer OTHER, SELFPAY ==
--- NOTE | 2025-09-18 15:17 | DI.MG.S_ITS ---
MM screening mammo BI: 09/18/2025. BI-RADS: 1 CLINICAL: 65-year old female for bilateral screening mammogram. Tyrer-Cuzick lifetime risk of 10.1%. No personal or first-degree family history of breast cancer. Current reported family history of breast cancer: maternal aunt. The patient had a prior right breast biopsy. PRIOR EXAMS 08/14/2024, 01/24/2022, 10/16/2020, 09/06/2019. MAMMOGRAPHY TECHNIQUE: 2D and 3D (tomosynthesis) digital mammographic views obtained, with additional images as needed for full coverage. Current study was also evaluated with a Computer Aided Detection (CAD) system. DENSITY C. The breasts are heterogeneously dense, which may obscure small masses. MAMMOGRAPHY FINDINGS Bilateral: No suspicious mass, asymmetry, microcalcification, or other abnormality seen. IMPRESSION: * No evidence of malignancy. RECOMMENDATIONS Bilateral * Annual screening mammography. OVERALL ASSESSMENT CATEGORY BI-RADS-1: Negative. The [employer] recommends annual screening mammography beginning at age 40 for women with average risk of breast cancer. ELECTRONICALLY SIGNED: Sheila De Luna M.D. on 09/20/2025 at 12:15:00 AM PT Interpreting Station ID: [id number]
== END ==
LOC: MAMMO 15:14
PROVIDERS: PCP Internal Medicine; Referring Provider Internal Medicine; Visit Provider Internal Medicine
DX: Z12.31 Encounter for screening mammogram for malignant neoplasm of breast (principal); R92.333 Mammographic heterogeneous density, bilateral breasts; Z80.3 Family history of malignant neoplasm of breast
CPT/HCPCS: 77063; 77067